=== PATIENT | female | born 1955 | race Caucasian/White ===

== ENCOUNTER 2017-07-23 18:09 | Emergency (ER) | payer MEDICARE, MEDICAID ==
[2017-07-23] MEDS ORDERED: Lactated Ringers 1,000 ML IV ONE (18:41)
[2017-07-23] MEDS ORDERED: Metoclopramide 10 MG/2 ML SDV IVPUSH ONE (18:42)
[2017-07-23] MEDS ORDERED: HYDROmorphone 2 MG/ML SDV IVPUSH ONE ×2 (18:42→21:30)
--- NOTE | 2017-07-23 18:48 | EDM.PDOC ---
ED HPI GENERAL MEDICAL PROBLEM - General Chief Complaint: Abdominal Pain Stated Complaint: STOMACH AND BACK PAIN Time Seen by Provider: 07/23/17 18:35 Source of Information: Reports: Patient, Old Records History Limitations: Reports: No Limitations - History of Present Illness INITIAL COMMENTS - FREE TEXT/NARRATIVE: 61 yo female had progressive R sided abdominal pain on Saturday that has been severe and constant since then. No change in bowel or bladder fxn. No fever. Nausea with "dry heaves". Has had both appendix and gallbladder removed. Has a pain pump for back pain. Was seen by Dr. Landis today who referred to the ER. Has a hx of diverticulitis and this feels similar. Onset: Gradual Onset Date: 07/21/17 Duration: Day(s):, Constant Location: Reports: Abdomen Quality: Reports: Stabbing Severity: Severe Improves with: Reports: None Worsens with: Reports: Breathing, Other (pressing on area) Context: Reports: Other (unknown) Associated Symptoms: Reports: Nausea/Vomiting. Denies: Cough, Diaphoresis, Fever/Chills, Loss of Appetite, Shortness of Breath Treatments HR SPECIALIST: Reports: Other (see below) (none) right abdomen pain Pain Score (Numeric/FACES): 10 - Related Data Allergies Allergy/AdvReac Type Severity Reaction Status Date / Time clarithromycin [From Biaxin] Allergy Rash Verified 07/23/17 18:29 Penicillins Allergy Anaphylactic Verified 07/23/17 18:29 Shock Home Meds: Home Meds ARIPiprazole [Abilify] 5 mg PO DAILY 08/17/13 [History] Esomeprazole [NexIUM] 40 mg PO DAILY 08/17/13 [History] Gabapentin [Neurontin] 300 mg PO 14,22 08/17/13 [History] Montelukast [Singulair] 10 mg PO DAILY 08/17/13 [History] Potassium Chloride 20 meq PO DAILY 08/17/13 [History] Prazosin [Minpress] 3 mg PO BEDTIME 08/17/13 [History] QUEtiapine [SEROquel] 50 mg PO BEDTIME 08/17/13 [History] Spironolactone [Aldactone] 150 mg PO DAILY 08/17/13 [History] buPROPion [Wellbutrin XL] 300 mg PO DAILY 08/17/13 [History] metFORMIN [metFORMIN XR] 1,000 mg PO BIDM 08/17/13 [History] Baclofen [Baclofen] 10 mg PO TID 07/15/16 [History] Estradiol [Estradiol] 0.5 mg PO DAILY 07/15/16 [History] Glimepiride 4 mg PO WITHBREAKFAST 07/15/16 [History] busPIRone HCl [Buspirone HCl] 15 mg PO BID 07/15/16 [History] rOPINIRole [Requip] 1 mg PO BID 07/15/16 [History] Aspirin 81 mg PO DAILY 07/23/17 [History] Benztropine [Cogentin] 0.5 mg PO BID 07/23/17 [History] Fluocinonide [Lidex 0.05% Oint] 1 applic TOP BID 07/23/17 [History] Gabapentin [Neurontin] 600 mg PO 08 07/23/17 [History] Triamcinolone Acetonide [Kenalog 0.1% Crm] 1 applic TOP DAILY PRN 07/23/17 [ History] atorvaSTATin [Lipitor] 10 mg PO DAILY 07/23/17 [History] oxyCODONE 5 mg PO Q4HR PRN 07/23/17 [History] Past Medical History - Past Health History Medical/Surgical History: Denies Medical/Surgical History HEENT History: Reports: Impaired Vision Cardiovascular History: Reports: Hypertension Respiratory History: Reports: Bronchitis, Recurrent Gastrointestinal History: Reports: GERD Neurological History: Reports: Vertigo, Other (See Below) Other Neuro History: restless legs Psychiatric History: Reports: Anxiety Endocrine/Metabolic History: Reports: Diabetes, Type II - Past Surgical History Musculoskeletal Surgical History: Reports: Knee Replacement, Shoulder Replacement, Other (See Below) Social & Family History - Family History Family Medical History: Noncontributory - Tobacco Use Smoking Status *Q: Current Every Day Smoker Years of Tobacco use: 10 Packs/Tins Daily: 0.3 Used Tobacco, but Quit: No - Caffeine Use Caffeine Use: Reports: Coffee - Alcohol Use Days Per Week of Alcohol Use: 0 - Recreational Drug Use Recreational Drug Use: No ED ROS GENERAL - Review of Systems Review Of Systems: See Below Constitutional: Reports: Decreased Appetite. Denies: Fever, Chills HEENT: Reports: No Symptoms Respiratory: Reports: No Symptoms Cardiovascular: Reports: No Symptoms Endocrine: Reports: No Symptoms GI/Abdominal: Reports: Abdominal Pain, Nausea. Denies: Black Stool, Bloody Stool, Constipation, Diarrhea, Distension, Hematemesis, Hematochezia, Stool Incontinence, Vomiting : Reports: No Symptoms Skin: Reports: No Symptoms Neurological: Reports: No Symptoms ED EXAM, GI/ABD - Physical Exam Exam: See Below Exam Limited By: No Limitations General Appearance: Alert, WD/WN, No Apparent Distress Eyes: Bilateral: Normal Appearance Ears: Normal External Exam, Normal Canal, Hearing Grossly Normal Nose: Normal Inspection, Normal Mucosa, No Blood Throat/Mouth: Normal Inspection, Normal Lips, Normal Oropharynx, Normal Voice, No Airway Compromise Head: Atraumatic, Normocephalic Neck: Normal Inspection, Supple Respiratory/Chest: No Respiratory Distress, Lungs Clear, Normal Breath Sounds, No Accessory Muscle Use Cardiovascular: Regular Rate, Rhythm, No Edema GI/Abdominal Exam: Soft, No Distention, Guarding, Tender (R mid abdomen, and epigastrium.), Abnormal Bowel Sounds (Increased). No: Non-Tender, Rebound Back Exam: Normal Inspection, CVA Tenderness (R) (mild). No: CVA Tenderness (L) Extremities: Normal Inspection, Non-Tender, No Pedal Edema Neurological: Alert, Oriented, CN II-XII Intact, Normal Cognition, No Motor/ Sensory Deficits Psychiatric: Normal Affect, Normal Mood Skin Exam: Warm, Dry, Intact, Normal Color, No Rash Lymphatic: No Adenopathy Course - Vital Signs Last Recorded V/S: Last Vital Signs Temp 36.6 C 07/23/17 18:15 Pulse 81 07/23/17 18:15 Resp 20 07/23/17 18:15 BP 152/97 H 07/23/17 18:15 Pulse Ox 100 07/23/17 18:15 - Orders/Labs/Meds Orders: Active Orders 24 hr Category Date Time Status Abdomen Pelvis w Cont [CT] Stat Exams 07/23/17 18:43 Taken Labs: Laboratory Tests 07/23/17 07/23/17 07/23/17 Range/Units 18:55 18:55 18:55 WBC 9.1 (4.5-12.0) X10-3/uL RBC 5.85 H (3.23-5.20) x10(6)uL Hgb 16.6 H (11.5-15.5) g/dL Hct 51.2 (30.0-51.3) % MCV 87.5 (80-96) fL MCH 28.3 (27.7-33.6) pg MCHC 32.3 (32.2-35.4) g/dL RDW 13.5 (11.5-15.5) % Plt Count 268 (125-369) X10(3)uL Sodium 134 L (135-145) mmol/L Potassium 3.7 (3.5-5.3) mmol/L Chloride 100 D (100-110) mmol/L Carbon Dioxide 23 (23-29) mmol/L BUN 14 (5-20) mg/dL Creatinine 0.8 (0.6-1.3) mg/dL Est Cr Clr Drug Dosing 73.63 mL/min Estimated GFR (MDRD) > 60 (>60) BUN/Creatinine Ratio 17.5 (9-20) Glucose 223 H (80-116) mg/dL Calcium 9.3 (8.6-10.2) mg/dL Total Bilirubin 1.0 (0.1-1.3) mg/dL AST 23 D (5-27) IU/L ALT 27 H (14-26) IU/L Alkaline Phosphatase 77 (56-112) IU/L Total Protein 8.3 H (6.0-8.0) g/dL Albumin 4.2 (3.5-5.2) g/dL Globulin 4.1 g/dL Albumin/Globulin Ratio 1.0 Amylase 83 (28-100) U/L Urine Color (YELLOW) Urine Appearance (CLEAR) Urine pH (5.0-6.5) Ur Specific [place] (1.010-1.025) Urine Protein (NEGATIVE) mg/dL Urine Glucose (UA) (NEGATIVE) mg/dL Urine Ketones (NEGATIVE) mg/dL Urine Occult Blood (NEGATIVE) Urine Nitrite (NEGATIVE) Urine Bilirubin (NEGATIVE) Urine Urobilinogen (NEGATIVE) mg/dL Ur Leukocyte Esterase (NEGATIVE) Urine RBC (0) Urine WBC (0) Ur Squamous Epith Cells (NS,R,O) Urine Bacteria (NS) 07/23/17 Range/Units 20:20 WBC (4.5-12.0) X10-3/uL RBC (3.23-5.20) x10(6)uL Hgb (11.5-15.5) g/dL Hct (30.0-51.3) % MCV (80-96) fL MCH (27.7-33.6) pg MCHC (32.2-35.4) g/dL RDW (11.5-15.5) % Plt Count (125-369) X10(3)uL Sodium (135-145) mmol/L Potassium (3.5-5.3) mmol/L Chloride (100-110) mmol/L Carbon Dioxide (23-29) mmol/L BUN (5-20) mg/dL Creatinine (0.6-1.3) mg/dL Est Cr Clr Drug Dosing mL/min Estimated GFR (MDRD) (>60) BUN/Creatinine Ratio (9-20) Glucose (80-116) mg/dL Calcium (8.6-10.2) mg/dL Total Bilirubin (0.1-1.3) mg/dL AST (5-27) IU/L ALT (14-26) IU/L Alkaline Phosphatase (56-112) IU/L Total Protein (6.0-8.0) g/dL Albumin (3.5-5.2) g/dL Globulin g/dL Albumin/Globulin Ratio Amylase (28-100) U/L Urine Color Yellow (YELLOW) Urine Appearance Clear (CLEAR) Urine pH 5.0 (5.0-6.5) Ur Specific [place] 1.015 (1.010-1.025) Urine Protein Negative (NEGATIVE) mg/dL Urine Glucose (UA) Normal (NEGATIVE) mg/dL Urine Ketones Negative (NEGATIVE) mg/dL Urine Occult Blood Negative (NEGATIVE) Urine Nitrite Negative (NEGATIVE) Urine Bilirubin Negative (NEGATIVE) Urine Urobilinogen Normal (NEGATIVE) mg/dL Ur Leukocyte Esterase Negative (NEGATIVE) Urine RBC 0-5 (0) Urine WBC 0-5 (0) Ur Squamous Epith Cells Moderate H (NS,R,O) Urine Bacteria Moderate H (NS) Meds: Medications Discontinued Medications Generic Name Dose Route Start Last Admin Trade Name Freq PRN Reason Stop Dose Admin Hydromorphone HCl 1 mg 07/23/17 18:42 07/23/17 19:09 Dilaudid IVPUSH 07/23/17 18:43 1 mg ONETIME ONE Administration Hydromorphone HCl 1 mg 07/23/17 21:30 07/23/17 21:34 Dilaudid IVPUSH 07/23/17 21:31 1 mg ONETIME ONE Administration Lactated Ringer's 1,000 mls @ 1,000 mls/hr 07/23/17 18:41 07/23/17 19:09 Ringers, Lactated IV 07/23/17 19:40 1,000 mls/hr BOLUS ONE Administration Iopamidol 150 ml 07/23/17 20:03 07/23/17 20:35 Isovue-370 (76%) IV 07/23/17 20:04 120 ml ONETIME ONE Administration Metoclopramide HCl 10 mg 07/23/17 18:42 07/23/17 19:09 Reglan IVPUSH 07/23/17 18:43 10 mg ONETIME ONE Administration Ondansetron HCl 4 mg 07/23/17 19:31 07/23/17 19:46 Zofran IVPUSH 07/23/17 19:32 4 mg ONETIME ONE Administration - Radiology Interpretation CT Results Date: 07/23/17 Departure - Departure Time of Disposition: 21:53 Disposition: Home, Self-Care 01 Condition: Good Clinical Impression: Abdominal pain Qualifiers: Abdominal location: generalized Qualified Code(s): R10.84 - Generalized abdominal pain Constipation Qualifiers: Constipation type: slow transit constipation Qualified Code(s): K59.01 - Slow transit constipation - Discharge Information Referrals: Castro Landis MD [Primary Care Provider] - Forms: ED Department Discharge - My Orders Last 24 Hours: My Active Orders 07/23/17 18:43 Abdomen Pelvis w Cont [CT] Stat - Assessment/Plan Last 24 Hours: My Active Orders 07/23/17 18:43 Abdomen Pelvis w Cont [CT] Stat
[2017-07-23] MEDS ORDERED: Ondansetron 4 MG/2 ML SDV IVPUSH ONE (19:31)
[2017-07-23] MEDS ORDERED: Iopamidol 755 MG/ML 150 ML Bottle IV ONE (20:03)
[2017-07-23] MEDS ORDERED: Ondansetron 4 MG Tab.DIS PO ONE (21:57)
[2017-07-23 22:13] VITALS: BP 153/80
== END 2017-07-23 22:05 | disposition home or self-care (01) ==
LOC: FB.ED 18:09
DX: K59.01 Slow transit constipation (principal); I10 Essential (primary) hypertension; K21.9 Gastro-esophageal reflux disease without esophagitis; E11.9 Type 2 diabetes mellitus without complications; F17.210 Nicotine dependence, cigarettes, uncomplicated; Z88.0 Allergy status to penicillin; Z88.8 Allergy status to other drugs, medicaments and biological substances; Z79.84 Long term (current) use of oral hypoglycemic drugs
CPT/HCPCS: 36415; 74177; 80053; 81001; 82150; 85027; 96365; 96375; 96376; 99284; J1170; J2405; J2765; J7120; Q9967; A9270-GY

== ENCOUNTER 2019-09-01 16:56 | Emergency (ER) | payer MEDICARE, MEDICAID ==
[2019-09-01] MEDS ORDERED: Acetaminophen/oxyCODONE 325-5 MG Tab PO ONE (16:57)
[2019-09-01] MEDS ORDERED: Ondansetron 4 MG Tab.DIS PO ONE (16:57)
[2019-09-01] MEDS ORDERED: Sodium Chloride 0.9% 10 ML Syringe FLUSH PRN (18:31)
[2019-09-01] MEDS ORDERED: Morphine 2 MG/ML Syringe IVPUSH ONE (18:34)
[2019-09-01] MEDS ORDERED: Ondansetron 4 MG/2 ML SDV IVPUSH ONE (18:34)
[2019-09-01] MEDS ORDERED: Alum Hydroxide/Mag Hydroxide 15 ML, Lidocaine 2% 15 ML PO ONE ×2 (18:34)
[2019-09-01] MEDS ORDERED: Sodium Chloride 0.9% 1,000 ML IV SCH (18:45)
[2019-09-01] MEDS ORDERED: Iopamidol 755 Mg/ML 100 ML Bottle IV ONE (19:00)
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
[2019-09-01 20:46] VITALS: BP 152/86; PULSE 70
== END 2019-09-01 20:42 | disposition home or self-care (01) ==
LOC: FB.ED 16:56
DX: K74.60 Unspecified cirrhosis of liver (principal); K76.6 Portal hypertension; I10 Essential (primary) hypertension; K21.9 Gastro-esophageal reflux disease without esophagitis; F41.9 Anxiety disorder, unspecified; F32.9 Major depressive disorder, single episode, unspecified; E11.9 Type 2 diabetes mellitus without complications; Z88.0 Allergy status to penicillin; Z88.1 Allergy status to other antibiotic agents; F17.210 Nicotine dependence, cigarettes, uncomplicated; E66.9 Obesity, unspecified; Z68.37 Body mass index [BMI] 37.0-37.9, adult; Z79.82 Long term (current) use of aspirin; Z79.84 Long term (current) use of oral hypoglycemic drugs; Z79.899 Other long term (current) drug therapy
CPT/HCPCS: 36415; 74177; 80053; 82150; 83690; 85025; 96361; 96374; 96375; 99284; A9270; J2270; J2405; J7030; Q9967

== ENCOUNTER 2019-09-03 09:53 | Inpatient (IN) | payer MEDICARE, MEDICAID ==
[2019-09-03] MEDS: Sodium Chloride 0.9% 10 ML Syringe FLUSH PRN ×2 (11:10→11:33)
[2019-09-03] MEDS: Lactated Ringers 1,000 ML IV SCH ×2 (11:12→19:01)
[2019-09-03] MEDS ORDERED: Pantoprazole 80 MG in Sodium Chloride 0.9% 100 ML IV SCH (11:15)
[2019-09-03] MEDS: Enoxaparin 30 MG/0.3 ML Syringe SUBCUT SCH (11:20)
[2019-09-03] MEDS: Ondansetron 4 MG/2 ML SDV IV PRN ×2 (11:28→23:24)
[2019-09-03] MEDS: HYDROmorphone 2 MG/ML SDV IVPUSH PRN ×6 (11:33→23:16)
[2019-09-03] MEDS: Pantoprazole 40 MG Vial IVPUSH SCH (11:34)
[2019-09-03] MEDS: Baclofen 10 MG Tab PO SCH (21:15)
[2019-09-03] MEDS: QUEtiapine 25 MG Tab PO SCH (21:15)
[2019-09-04] MEDS: HYDROmorphone 2 MG/ML SDV IVPUSH PRN ×6 (01:44→16:35)
[2019-09-04] MEDS: Lactated Ringers 1,000 ML IV SCH ×3 (02:59→19:26)
[2019-09-04] MEDS: Ondansetron 4 MG/2 ML SDV IV PRN (08:04)
--- NOTE | 2019-09-04 09:07 | PCM.PN ---
- General Info Date of Service: 09/04/19 Subjective Update: Patrica is a 63-year-old female admitted for acute pancreatitis. She still complains of pain in the right upper quadrant, abdominal distention, and some constipation. She denies any vomiting. Functional Status: Reports: Pain Controlled - Review of Systems General: Reports: No Symptoms HEENT: Reports: No Symptoms Pulmonary: Reports: No Symptoms Cardiovascular: Reports: No Symptoms Gastrointestinal: Reports: Abdominal Pain, Constipation Genitourinary: Reports: No Symptoms - Patient Data Vitals - Most Recent: Last Vital Signs Temp 97.7 F 09/04/19 07:57 Pulse 62 09/04/19 07:57 Resp 16 09/04/19 07:57 BP 130/74 09/04/19 07:57 Pulse Ox 96 09/04/19 07:57 Weight - Most Recent: 112.083 kg I&O - Last 24 Hours: Intake & Output 09/03/19 09/04/19 09/04/19 22:59 06:59 14:59 Intake Total 1914 1535 Output Total 350 750 350 Balance 1564 785 -350 Lab Results Last 24 Hours: Laboratory Results - last 24 hr 09/03/19 09/03/19 09/03/19 Range/Units 11:25 11:25 11:50 WBC 6.5 (4.5-12.0) X10-3/uL RBC 4.63 (3.23-5.20) x10(6)uL Hgb 14.9 (11.5-15.5) g/dL Hct 43.1 (30.0-51.3) % MCV 93.1 (80-96) fL MCH 32.1 (27.7-33.6) pg MCHC 34.5 (32.2-35.4) g/dL RDW 12.9 (11.5-15.5) % Plt Count 195 (125-369) X10(3)uL Sodium 140 (135-145) mmol/L Potassium 3.4 L (3.5-5.3) mmol/L Chloride 106 (100-110) mmol/L Carbon Dioxide 26 (21-32) mmol/L BUN 5 L (7-18) mg/dL Creatinine 0.7 (0.55-1.02) mg/dL Est Cr Clr Drug Dosing 82.07 mL/min Estimated GFR (MDRD) > 60 (>60) BUN/Creatinine Ratio 7.1 L (9-20) Glucose 104 (80-116) mg/dL POC Glucose 83 (80-116) mg/dL Calcium 8.6 (8.6-10.2) mg/dL Magnesium 1.7 L (1.8-2.5) mg/dL Total Bilirubin 0.4 (0.1-1.3) mg/dL AST 18 (5-25) IU/L ALT 30 D (12-36) U/L Alkaline Phosphatase 68 (56-112) IU/L Total Protein 6.6 (6.0-8.0) g/dL Albumin 3.2 (3.2-4.6) g/dL Globulin 3.4 g/dL Albumin/Globulin Ratio 0.9 09/03/19 09/03/19 09/04/19 Range/Units 17:22 19:51 05:39 WBC (4.5-12.0) X10-3/uL RBC (3.23-5.20) x10(6)uL Hgb (11.5-15.5) g/dL Hct (30.0-51.3) % MCV (80-96) fL MCH (27.7-33.6) pg MCHC (32.2-35.4) g/dL RDW (11.5-15.5) % Plt Count (125-369) X10(3)uL Sodium (135-145) mmol/L Potassium (3.5-5.3) mmol/L Chloride (100-110) mmol/L Carbon Dioxide (21-32) mmol/L BUN (7-18) mg/dL Creatinine (0.55-1.02) mg/dL Est Cr Clr Drug Dosing mL/min Estimated GFR (MDRD) (>60) BUN/Creatinine Ratio (9-20) Glucose (80-116) mg/dL POC Glucose 80 141 H 89 (80-116) mg/dL Calcium (8.6-10.2) mg/dL Magnesium (1.8-2.5) mg/dL Total Bilirubin (0.1-1.3) mg/dL AST (5-25) IU/L ALT (12-36) U/L Alkaline Phosphatase (56-112) IU/L Total Protein (6.0-8.0) g/dL Albumin (3.2-4.6) g/dL Globulin g/dL Albumin/Globulin Ratio Med Orders - Current: Current Medications Baclofen (Lioresal) 10 mg PO TID [facility] Last Admin: 09/03/19 21:15 Dose: 10 mg Enoxaparin Sodium (Lovenox) 30 mg SUBCUT Q24H [facility] Last Admin: 09/03/19 11:20 Dose: 30 mg Hydromorphone HCl (Dilaudid) 0.5 mg IVPUSH Q2H PRN PRN Reason: Pain (severe 7-10) Last Admin: 09/04/19 08:03 Dose: 0.5 mg Lactated Ringer's (Ringers, Lactated) 1,000 mls @ 125 mls/hr IV ASDIRECTED [facility] Last Admin: 09/04/19 02:59 Dose: 125 mls/hr Ondansetron HCl (Zofran) 4 mg IV Q4H PRN PRN Reason: Nausea/Vomiting Last Admin: 09/04/19 08:04 Dose: 4 mg Pantoprazole Sodium (Protonix Iv) 40 mg IVPUSH Q24H [facility] Last Admin: 09/03/19 11:34 Dose: 40 mg Quetiapine Fumarate (Seroquel) 25 mg PO BEDTIME [facility] Last Admin: 09/03/19 21:15 Dose: 25 mg Sodium Chloride (Saline Flush) 10 ml FLUSH ASDIRECTED PRN PRN Reason: IV Use Last Admin: 09/03/19 11:33 Dose: 10 ml Discontinued Medications Pantoprazole Sodium 80 mg/ (Sodium Chloride) 100 mls @ 10 mls/hr IV .Continuous [facility] - Exam General: Alert, Oriented HEENT: Pupils Equal Lungs: Clear to Auscultation Cardiovascular: Regular Rate GI/Abdominal Exam: Distended, Guarding, Tender. No: Hepatomegaly Extremities: Normal Inspection Neurological: No New Focal Deficit - Problem List & Annotations (1) Pancreatitis SNOMED Code(s): 61514724 Code(s): K85.90 - ACUTE PANCREATITIS WITHOUT NECROSIS OR INFECTION, UNSP Status: Acute Current Visit: Yes Qualifiers: Chronicity: acute Pancreatitis type: idiopathic Acute pancreatitis complication: no infection or necrosis Qualified Code(s): K85.00 - Idiopathic acute pancreatitis without necrosis or infection (2) Constipation SNOMED Code(s): 49871952 Code(s): K59.00 - CONSTIPATION, UNSPECIFIED Status: Acute Current Visit: No Qualifiers: Constipation type: slow transit constipation Qualified Code(s): K59.01 - Slow transit constipation (3) Jerking movements of extremities SNOMED Code(s): 539822376 Code(s): R25.2 - CRAMP AND SPASM Status: Acute Current Visit: No (4) Portal hypertension SNOMED Code(s): 68491616 Code(s): K76.6 - PORTAL HYPERTENSION Status: Acute Current Visit: No (5) Restless leg SNOMED Code(s): 16151634 Code(s): G25.81 - RESTLESS LEGS SYNDROME Status: Chronic Current Visit: No Annotation/Comment:: Possible RLS. She has been given benzodiazepines in the past. I suggested taking (2) Seroquel 25 mg tabs from home this early am, and call PCP office for appt for follow up. (6) TRIPP (generalized anxiety disorder) SNOMED Code(s): 45811768 Code(s): F41.1 - GENERALIZED ANXIETY DISORDER Status: Acute Current Visit : Yes (7) Chronic pain SNOMED Code(s): 63125871 Code(s): G89.29 - OTHER CHRONIC PAIN Status: Acute Current Visit: Yes Qualifiers: Chronic pain type: chronic pain syndrome Qualified Code(s): G89.4 - Chronic pain syndrome (8) Hepatitis C Status: Acute Current Visit: Yes Qualifiers: Viral hepatitis chronicity: chronic - Problem List Review Problem List Initiated/Reviewed/Updated: Yes - My Orders Last 24 Hours: My Active Orders 09/04/19 09:01 Abdomen 2V AP Flat Upright [CR] Urgent 09/04/19 09:02 traMADol [Ultram] 50 mg PO QID PRN 09/04/19 14:00 Gabapentin [Neurontin] 300 mg PO 09/04/19 21:00 Prazosin HCl [Prazosin] 2 mg PO BEDTIME Prazosin [Minpress] 1 mg PO BEDTIME QUEtiapine [SEROquel] 50 mg PO BEDTIME busPIRone [Buspar] 15 mg PO BID rOPINIRole [Requip] 1 mg PO BID 09/05/19 05:11 AMYLASE [CHEM] AM CBC WITH AUTO DIFF [HEME] AM LIPASE [CHEM] AM 09/05/19 08:00 Gabapentin [Neurontin] 600 mg PO 08 09/05/19 09:00 ARIPiprazole [Abilify] 5 mg PO DAILY Esomeprazole [NexIUM] 40 mg PO DAILY Spironolactone [Aldactone] 150 mg PO DAILY buPROPion [Wellbutrin XL] 300 mg PO DAILY - Plan Plan:: I will obtain an upright and flat x-ray of abdomen. Continued clear liquid diet , because how some of the home medications ,including PPI as tolerated. Repeat a lipase CBC and CMP in the morning.
[2019-09-04] MEDS: traMADol 50 MG Tab PO PRN ×3 (09:39→20:15)
[2019-09-04] MEDS: Baclofen 10 MG Tab PO SCH ×3 (09:39→20:20)
[2019-09-04] MEDS: busPIRone 15 MG Tab PO SCH ×2 (11:03→20:20)
[2019-09-04] MEDS: Gabapentin 600 MG Tab PO SCH (11:03)
[2019-09-04] MEDS: Spironolactone 50 MG Tab PO SCH (11:03)
[2019-09-04] MEDS: rOPINIRole 1 MG Tab PO SCH ×2 (11:03→20:16)
[2019-09-04] MEDS: ARIPiprazole 5 MG Tab PO SCH (11:03)
[2019-09-04] MEDS: buPROPion 150 MG Tab.ER PO SCH (11:04)
[2019-09-04] MEDS: Pantoprazole 40 MG Vial IVPUSH SCH (11:05)
[2019-09-04] MEDS: Enoxaparin 30 MG/0.3 ML Syringe SUBCUT SCH (11:05)
[2019-09-04] MEDS: Gabapentin 300 MG Cap PO SCH ×2 (14:11→21:04)
[2019-09-04] MEDS ORDERED: Polyethylene Glycol 3350 Powder 17 GM Packet PO ONE (19:26)
[2019-09-04] MEDS: QUEtiapine 25 MG Tab PO SCH (20:16)
[2019-09-04] MEDS ORDERED: Prazosin 1 MG Cap PO SCH ×2 (21:00)
[2019-09-05] MEDS: traMADol 50 MG Tab PO PRN (02:22)
[2019-09-05] MEDS: Lactated Ringers 1,000 ML IV SCH (03:13)
[2019-09-05] MEDS: HYDROmorphone 2 MG/ML SDV IVPUSH PRN (05:16)
[2019-09-05] MEDS: Gabapentin 600 MG Tab PO SCH (08:20)
[2019-09-05] MEDS: ARIPiprazole 5 MG Tab PO SCH (08:20)
[2019-09-05] MEDS: busPIRone 15 MG Tab PO SCH (08:21)
[2019-09-05] MEDS: Baclofen 10 MG Tab PO SCH (08:21)
[2019-09-05] MEDS: Spironolactone 50 MG Tab PO SCH (08:21)
[2019-09-05] MEDS: rOPINIRole 1 MG Tab PO SCH (08:21)
[2019-09-05] MEDS: buPROPion 150 MG Tab.ER PO SCH (08:21)
[2019-09-05 08:38] VITALS: BP 136/80; PULSE 60
--- NOTE | 2019-09-05 08:47 | PCM.DCSUM1 ---
Discharge Summary - Hospital Course Free Text/Narrative:: Patrica was admitted to acute idiopathic pancreatitis. CT revealed mild inflammation of the pancreas. This morning lipase and amylase returned to normal range. She feels ready to go home. HPI Initial Comments: Patrica was admitted for pancreatitis. I feel dose of blood pain improved. She still has some constipation. She has been drinking clear fluids and tolerating it Diagnosis: Stroke: No - Discharge Data Discharge Date: 09/05/19 Discharge Disposition: Home, Self-Care 01 Condition: Good - Referral to Home Health Primary Care Physician: Castro Landis MD - Discharge Diagnosis/Problem(s) (1) Pancreatitis SNOMED Code(s): 30648081 ICD Code: K85.90 - ACUTE PANCREATITIS WITHOUT NECROSIS OR INFECTION, UNSP Status: Acute Current Visit: Yes Qualifiers: Chronicity: acute Pancreatitis type: idiopathic Acute pancreatitis complication: no infection or necrosis Qualified Code(s): K85.00 - Idiopathic acute pancreatitis without necrosis or infection (2) Constipation SNOMED Code(s): 78124230 ICD Code: K59.00 - CONSTIPATION, UNSPECIFIED Status: Acute Current Visit : No Qualifiers: Constipation type: slow transit constipation Qualified Code(s): K59.01 - Slow transit constipation (3) Jerking movements of extremities SNOMED Code(s): 109646369 ICD Code: R25.2 - CRAMP AND SPASM Status: Acute Current Visit: No (4) Portal hypertension SNOMED Code(s): 73662908 ICD Code: K76.6 - PORTAL HYPERTENSION Status: Acute Current Visit: No (5) Restless leg SNOMED Code(s): 72830598 ICD Code: G25.81 - RESTLESS LEGS SYNDROME Status: Chronic Current Visit: No Problem Details: Possible RLS. She has been given benzodiazepines in the past. I suggested taking (2) Seroquel 25 mg tabs from home this early am, and call PCP office for appt for follow up. (6) TRIPP (generalized anxiety disorder) SNOMED Code(s): 42104829 ICD Code: F41.1 - GENERALIZED ANXIETY DISORDER Status: Acute Current Visit: Yes (7) Chronic pain SNOMED Code(s): 71025347 ICD Code: G89.29 - OTHER CHRONIC PAIN Status: Acute Current Visit: Yes Qualifiers: Chronic pain type: chronic pain syndrome Qualified Code(s): G89.4 - Chronic pain syndrome (8) Hepatitis C Status: Acute Current Visit: Yes Qualifiers: Viral hepatitis chronicity: chronic - Discharge Plan Home Medications: Home Meds ARIPiprazole [Abilify] 5 mg PO DAILY 08/17/13 [History] Esomeprazole [NexIUM] 40 mg PO DAILY 08/17/13 [History] Gabapentin [Neurontin] 300 mg PO 14,08/17/13 [History] Montelukast [Singulair] 10 mg PO DAILY 08/17/13 [History] Potassium Chloride 20 meq PO DAILY 08/17/13 [History] Prazosin [Minpress] 1 mg PO BEDTIME 08/17/13 [History] QUEtiapine [SEROquel] 25 mg PO BEDTIME 08/17/13 [History] Spironolactone [Aldactone] 150 mg PO DAILY 08/17/13 [History] buPROPion [buPROPion XL] 300 mg PO DAILY 08/17/13 [History] Baclofen 10 mg PO TID 07/15/16 [History] Estradiol 0.5 mg PO DAILY 07/15/16 [History] Glimepiride 4 mg PO WITHBREAKFAST 07/15/16 [History] busPIRone HCl [Buspirone HCl] 15 mg PO BID 07/15/16 [History] rOPINIRole [Requip] 1 mg PO BID 07/15/16 [History] Aspirin 81 mg PO DAILY 07/23/17 [History] Benztropine [Cogentin] 0.5 mg PO BID PRN 07/23/17 [History] Fluocinonide [Lidex 0.05% Oint] 1 applic TOP BID PRN 07/23/17 [History] Gabapentin [Neurontin] 600 mg PO 08 07/23/17 [History] Triamcinolone Acetonide [Kenalog 0.1% Crm] 1 applic TOP BID PRN 07/23/17 [ History] atorvaSTATin [Lipitor] 10 mg PO DAILY 07/23/17 [History] Acetaminophen/oxyCODONE [Percocet 325-5 MG] 1 each PO Q4H PRN 09/03/19 [History] Acetaminophen/oxyCODONE [Percocet 325-5 MG] 2 tab PO Q4H PRN 09/03/19 [History] Carboxymethylcellulose Sodium [Artificial Tears] 2 drop EYEBOTH Q4H PRN [History] Insulin Degludec [Tresiba Flextouch U-100] 44 units SUBCUT DAILY 09/03/19 [ History] Ondansetron HCl [Zofran] 4 mg PO Q4H PRN 09/03/19 [History] Prazosin HCl [Prazosin] 2 mg PO BEDTIME 09/03/19 [History] QUEtiapine [SEROquel] 50 mg PO BEDTIME 09/03/19 [History] metFORMIN HCl [Metformin HCl] 1,000 mg PO BIDMEALS 09/03/19 [History] traMADol HCl [Tramadol HCl] 50 mg PO QID PRN 09/03/19 [History] Referrals: Boy Wade MD [Physician] - 09/07/19 - Discharge Summary/Plan Comment DC Time >30 min.: Yes - General Info Date of Service: 09/05/19 Subjective Update: Doing much bettter Functional Status: Reports: Pain Controlled, Tolerating Diet - Review of Systems General: Reports: No Symptoms HEENT: Reports: No Symptoms Pulmonary: Reports: No Symptoms Cardiovascular: Reports: No Symptoms Gastrointestinal: Reports: Constipation Genitourinary: Reports: No Symptoms Musculoskeletal: Reports: Neck Pain, Back Pain Skin: Reports: No Symptoms Neurological: Reports: No Symptoms - Patient Data Vitals - Most Recent: Last Vital Signs Temp 97.8 F 09/05/19 08:00 Pulse 60 09/05/19 08:00 Resp 18 09/05/19 08:00 BP 136/80 09/05/19 08:00 Pulse Ox 99 09/05/19 08:00 Weight - Most Recent: 113.217 kg I&O - Last 24 hours: Intake & Output 09/04/19 09/05/19 09/05/19 22:59 06:59 14:59 Intake Total 1634 1000 Output Total 1500 1100 Balance 134 -100 Lab Results - Last 24 hrs: Laboratory Results - last 24 hr 09/04/19 09/04/19 09/05/19 Range/Units 17:21 20:24 06:30 WBC 5.5 (4.5-12.0) X10-3/uL RBC 4.42 (3.23-5.20) x10(6)uL Hgb 13.7 (11.5-15.5) g/dL Hct 41.8 (30.0-51.3) % MCV 94.6 (80-96) fL MCH 31.0 (27.7-33.6) pg MCHC 32.8 (32.2-35.4) g/dL RDW 13.1 (11.5-15.5) % Plt Count 177 (125-369) X10(3)uL MPV 9.4 (7.4-10.4) fL Neut % (Auto) 69.0 (46-82) % Lymph % (Auto) 21.4 (13-37) % Wilkes % (Auto) 6.5 (4-12) % Eos % (Auto) 3 (1.0-5.0) % Baso % (Auto) 1 (0-2) % Neut # (Auto) 3.8 (1.6-8.3) # Lymph # (Auto) 1.2 (0.6-5.0) # Wilkes # (Auto) 0.4 (0.0-1.3) # Eos # (Auto) 0.1 (0.0-0.8) # Baso # (Auto) 0.0 (0.0-0.2) # POC Glucose 141 H 202 H (80-116) mg/dL Amylase (25-115) U/L Lipase (73-393) U/L 09/05/19 09/05/19 09/05/19 Range/Units 06:30 06:30 06:36 WBC (4.5-12.0) X10-3/uL RBC (3.23-5.20) x10(6)uL Hgb (11.5-15.5) g/dL Hct (30.0-51.3) % MCV (80-96) fL MCH (27.7-33.6) pg MCHC (32.2-35.4) g/dL RDW (11.5-15.5) % Plt Count (125-369) X10(3)uL MPV (7.4-10.4) fL Neut % (Auto) (46-82) % Lymph % (Auto) (13-37) % Wilkes % (Auto) (4-12) % Eos % (Auto) (1.0-5.0) % Baso % (Auto) (0-2) % Neut # (Auto) (1.6-8.3) # Lymph # (Auto) (0.6-5.0) # Wilkes # (Auto) (0.0-1.3) # Eos # (Auto) (0.0-0.8) # Baso # (Auto) (0.0-0.2) # POC Glucose 164 H (80-116) mg/dL Amylase 39 (25-115) U/L Lipase 304 (73-393) U/L Med Orders - Current: Current Medications Aripiprazole (Abilify) 5 mg PO DAILY [facility] Last Admin: 09/05/19 08:20 Dose: 5 mg Baclofen (Lioresal) 10 mg PO TID [facility] Last Admin: 09/05/19 08:21 Dose: 10 mg Bupropion HCl (Wellbutrin Xl) 300 mg PO DAILY [facility] Last Admin: 09/05/19 08:21 Dose: 300 mg Buspirone HCl (Buspar) 15 mg PO BID [facility] Last Admin: 09/05/19 08:21 Dose: 15 mg Enoxaparin Sodium (Lovenox) 30 mg SUBCUT Q24H [facility] Last Admin: 09/04/19 11:05 Dose: 30 mg Gabapentin (Neurontin) 300 mg PO , [facility] Last Admin: 09/04/19 21:04 Dose: 300 mg Gabapentin (Neurontin) 600 mg PO 0800 [facility] Last Admin: 09/05/19 08:20 Dose: 600 mg Hydromorphone HCl (Dilaudid) 0.5 mg IVPUSH Q2H PRN PRN Reason: Pain (severe 7-10) Last Admin: 09/05/19 05:16 Dose: 0.5 mg Lactated Ringer's (Ringers, Lactated) 1,000 mls @ 125 mls/hr IV ASDIRECTED [facility] Last Admin: 09/05/19 03:13 Dose: 125 mls/hr Ondansetron HCl (Zofran) 4 mg IV Q4H PRN PRN Reason: Nausea/Vomiting Last Admin: 09/04/19 08:04 Dose: 4 mg Pantoprazole Sodium (Protonix Iv) 40 mg IVPUSH Q24H [facility] Last Admin: 09/04/19 11:05 Dose: 40 mg Prazosin HCl (Minpress) 3 mg PO BEDTIME [facility] Last Admin: 09/04/19 20:16 Dose: 3 mg Quetiapine Fumarate (Seroquel) 25 mg PO BEDTIME [facility] Last Admin: 09/04/19 20:16 Dose: 25 mg Quetiapine Fumarate (Seroquel) 50 mg PO BEDTIME [facility] Last Admin: 09/04/19 20:16 Dose: 50 mg Ropinirole HCl (Requip) 1 mg PO BID [facility] Last Admin: 09/05/19 08:21 Dose: 1 mg Sodium Chloride (Saline Flush) 10 ml FLUSH ASDIRECTED PRN PRN Reason: IV Use Last Admin: 09/03/19 11:33 Dose: 10 ml Spironolactone (Aldactone) 150 mg PO DAILY [facility] Last Admin: 09/05/19 08:21 Dose: 150 mg Tramadol HCl (Ultram) 50 mg PO QID PRN PRN Reason: Pain (severe 7-10) Last Admin: 09/05/19 02:22 Dose: 50 mg Discontinued Medications Pantoprazole Sodium 80 mg/ (Sodium Chloride) 100 mls @ 10 mls/hr IV .Continuous [facility] Polyethylene Glycol (Miralax) 17 gm PO ONETIME ONE Stop: 09/04/19 19:27 Last Admin: 09/04/19 20:14 Dose: 17 gm - Exam General: Reports: Alert, Oriented Neck: Reports: Supple Lungs: Reports: Clear to Auscultation Cardiovascular: Reports: Regular Rate GI/Abdominal Exam: Normal Bowel Sounds, Soft, Distended, Tender Skin: Reports: Warm Wound/Incisions: Reports: Healing Well Neurological: Reports: No New Focal Deficit Psy/Mental Status: Reports: Alert, Normal Affect
[2019-09-05] MEDS ORDERED: Non-Formulary Medication 1 Each (Esomeprazole [Nexium] 40 MG) PO SCH (09:00)
--- NOTE | 2019-09-09 10:04 | HP ---
ADMISSION DATE: 09/03/2019 REASON FOR VISIT: Complicated abdominal pain, clinical pancreatitis. HISTORY OF PRESENT ILLNESS: Patrica Ewing is a 63-year-old female from [place], [place], who was admitted at the request of Dr. Boy Wade to [facility]. Been plagued by several days of complicated epigastric abdominal pain, nausea, anorexia, reduced appetite, and a sense of reduced well being. Fever suspected, but not confirmed. Laboratory evidence revealed evidence of pancreatitis. CT performed at [facility] confirmed pancreatic head edema without malignancy or pseudocyst. Outpatient treatment of IV fluids and pain control unsuccessful. Admission to the hospital is indicated. MEDICATIONS: Present meds include: 1. Zofran 4 mg q.4 hours p.r.n. nausea. 2. Percocet 5/325, one q.6 hours p.r.n. for pain. 3. Tramadol 50 mg 1 p.o. q.i.d. p.r.n. for pain. 4. Intrathecal pump intervention. 5. Estrace 0.5 mg 1 p.o. daily, menopause. 6. Nexium 40 mg 1 p.o. daily, GERD. 7. Neurontin 300 mg 2 in the morning, 1 in the afternoon, and 1 at bedtime. 8. Lipitor 10 mg 1 p.o. daily, hyperlipidemia. 9. Baclofen 10 mg 1 p.o. t.i.d., muscle spasm. 10.Lidex 0.005% ointment p.r.n., rash. 11.Amaryl 4 mg 1 p.o. daily, NIDDM. 12.Metformin 1000 mg 1 p.o. b.i.d., NIDDM. 13.Singulair 10 mg 1 p.o. daily, allergies. 14.Requip 1 mg 1 p.o. b.i.d., restless legs. 15.Aldactone 100 mg 1/2 tab daily, blood pressure. 16.Tresiba 44 units subcu daily, NIDDM. 17.Minipress 2 mg 1 p.o. daily, hypertension, at bedtime; 3 mg in the morning. 18.BuSpar 15 mg 1 p.o. b.i.d., mood stabilizer. 19.Cogentin 0.5 mg b.i.d., side effect management. 20.Baby aspirin. 21.Artificial Tears. 22.Abilify 5 mg daily, mood stabilizer. 23.Seroquel 25 mg 1 p.o. at bedtime, mood stabilizer. 24.Wellbutrin XL 300 mg 1 p.o. daily, mood stabilizer. ALLERGIES: Penicillin, Biaxin, and seasonal allergies. PAST MEDICAL HISTORY: Significant for list of upper and lower endoscopy for varicosities, right ankle fusion, left knee arthroscopy, pain pump insertion, right total knee arthroplasty, left total ankle arthroplasty, appendectomy, lumbar back surgery, breast biopsies x2, cholecystectomy hysterectomy, previous spine surgery, remote tonsillectomy, left wrist fracture, and history of hepatitis C. SOCIAL HISTORY: She lives in [place], retired. . No children. Current smoker of 1/4 pack per day, 45 years' duration. No chewing tobacco. No vaping. No alcohol. FAMILY HISTORY: Negative for early heart disease, diabetes mellitus, or inheritable cancers. REVIEW OF SYSTEMS: CONSTITUTIONAL: Feeling poorly with the abdominal pain. EYES: Sees well. EARS: Hears well. OROPHARYNX: Poor dentition, though intact. CHEST: No cough, wheeze, or congestion. CARDIOVASCULAR: Denies chest pain, palpitations, or syncope. GASTROINTESTINAL: Please see HPI. GENITOURINARY: Voiding comfortably, less urine output with illness. SKIN: No lesions, eruptions, or moles. ENDOCRINE: No excessive thirst or urination. ALLERGIES: Noted. PSYCHIATRIC: Mood stable on meds. PHYSICAL EXAMINATION: VITAL SIGNS: Stable and documented. GENERAL: Middle- aged older female, appropriate, conversant, gives good history. HEENT: Funduscopic benign. Bright TMs. Clear nasal discharge. Mouth and oropharynx clear. NECK: Benign. Thyroid small. CHEST: Clear in all lung velazquez. No adventitious sounds. HEART: No ectopy or murmur. BREASTS: Symmetric, parous, without masses. ABDOMEN: Surgical scar is well healed. Diffusely tender in the epigastric area. Decreased bowel sounds. GENITOURINARY: Deferred. RECTAL: Deferred. EXTREMITIES: Well perfused. NEUROMUSCULAR: Intact. LABORATORY STUDIES: Performed and identified. ASSESSMENT: Acute pancreatitis, 63-year-old female. PLAN: Bowel rest, analgesics, IV fluids, and hydration; viewing of pancreas if indicated; cooperative care and well being. /[id number] YOLANDE/ALBA
== END 2019-09-05 09:40 | disposition home or self-care (01) | DRG 439 ==
LOC: FB.MS 10:06
PROVIDERS: ADMIT Family Medicine; ATTEND Family Medicine
DX: K85.00 Idiopathic acute pancreatitis without necrosis or infection (principal); K76.6 Portal hypertension; G25.81 Restless legs syndrome; F41.1 Generalized anxiety disorder; G89.4 Chronic pain syndrome; K73.8 Other chronic hepatitis, not elsewhere classified; K59.01 Slow transit constipation; Z79.899 Other long term (current) drug therapy
CPT/HCPCS: 36415; 74019; 80053; 82150; 82962; 83690; 83735; 85025; 85027; 93005; 94760; A9270-GY; C9113; J1170; J1650; J2405; J7120

== ENCOUNTER 2020-09-10 14:43 | Emergency (ER) | payer MEDICARE, MEDICAID ==
[2020-09-10] MEDS ORDERED: Acetaminophen/HYDROcodone 325-5 MG Tab PO ONE (14:44)
[2020-09-10] MEDS ORDERED: Ondansetron 4 MG Tab.DIS PO ONE (14:44)
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
[2020-09-10] MEDS ORDERED: Sodium Chloride 0.9% 10 ML Syringe FLUSH PRN (15:21)
[2020-09-10] MEDS ORDERED: Ondansetron 4 MG/2 ML SDV IVPUSH ONE (15:23)
[2020-09-10] MEDS ORDERED: HYDROmorphone 2 MG/ML SDV IVPUSH ONE (15:23)
[2020-09-10] MEDS ORDERED: Sodium Chloride 0.9% 1,000 ML IV ONE (15:23)
[2020-09-10] MEDS ORDERED: Sodium Chloride 0.9% 1,000 ML IV SCH (15:30)
[2020-09-10] MEDS ORDERED: Ketorolac 30 MG/ML SDV IVPUSH ONE (19:22)
[2020-09-10] MEDS ORDERED: cefTRIAXone 1 GM Vial IVPUSH ONE (19:46)
[2020-09-10 21:04] VITALS: BP 124/73; PULSE 70
== END 2020-09-10 20:35 | disposition home or self-care (01) ==
LOC: FB.ED 14:43
DX: N10 Acute pyelonephritis (principal); E78.00 Pure hypercholesterolemia, unspecified; I10 Essential (primary) hypertension; K21.9 Gastro-esophageal reflux disease without esophagitis; F41.9 Anxiety disorder, unspecified; F32.9 Major depressive disorder, single episode, unspecified; E11.9 Type 2 diabetes mellitus without complications; F17.200 Nicotine dependence, unspecified, uncomplicated; E66.9 Obesity, unspecified; Z68.37 Body mass index [BMI] 37.0-37.9, adult; Z88.1 Allergy status to other antibiotic agents; Z88.0 Allergy status to penicillin; Z79.899 Other long term (current) drug therapy; Z79.82 Long term (current) use of aspirin; Z79.4 Long term (current) use of insulin
CPT/HCPCS: 36415; 74176; 80053; 81001; 83690; 83735; 85025; 86140; 87086; 93005; 96374; 96375; 99284; A9270; J0696; J1170; J1885; J2405; J7030

== ENCOUNTER 2021-03-20 21:15 | Observation (INO) | payer MEDICARE, MEDICAID ==
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
[2021-03-20] MEDS ORDERED: Sodium Chloride 0.9% 1,000 ML IV ONE (22:13)
[2021-03-20] MEDS ORDERED: Ondansetron 4 MG/2 ML SDV IVPUSH ONE (22:14)
[2021-03-20] MEDS ORDERED: HYDROmorphone 2 MG/ML SDV IVPUSH ONE (22:14)
[2021-03-20] MEDS ORDERED: Iopamidol 755 MG/ML 150 ML Bottle IV ONE (23:51)
[2021-03-21] MEDS ORDERED: Iopamidol 755 MG/ML 150 ML Bottle IV ONE (00:17)
[2021-03-21] MEDS: Sodium Chloride 0.9% 1,000 ML IV SCH ×4 (00:30→23:59)
[2021-03-21] MEDS ORDERED: Ondansetron 4 MG/2 ML SDV IV PRN (01:49)
[2021-03-21] MEDS ORDERED: HYDROmorphone 2 MG/ML SDV IVPUSH ONE (02:04)
[2021-03-21] MEDS: HYDROmorphone 2 MG/ML SDV IVPUSH PRN ×6 (05:41→20:12)
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
[2021-03-21] MEDS ORDERED: Pantoprazole 40 MG Vial IV SCH (10:00)
[2021-03-21] MEDS: Pantoprazole 40 MG Vial IVPUSH SCH (11:12)
[2021-03-21] MEDS: Enoxaparin 40 MG/0.4 ML Syringe SUBCUT SCH (11:22)
[2021-03-21] MEDS: ARIPIPRAZOLE 5 MG PO SCH (11:23)
[2021-03-21] MEDS: BUPROPION HCL 300 MG PO SCH (11:24)
[2021-03-21] MEDS: BUSPIRONE 15 MG PO SCH ×2 (11:24→20:23)
[2021-03-21] MEDS: Potassium Chloride 20 MEQ Tab.ER *PTOM PO SCH (11:25)
[2021-03-21] MEDS: BACLOFEN 10 MG PO SCH ×3 (11:25→20:21)
[2021-03-21] MEDS: atorvaSTATin 10 MG Tab *PTOM PO SCH (11:26)
[2021-03-21] MEDS: Gabapentin 300 MG Cap *PTOM PO SCH ×3 (11:26→20:21)
[2021-03-21] MEDS: Montelukast 10 MG Tab *PTOM PO SCH (11:27)
[2021-03-21] MEDS: rOPINIRole 1 MG Tab *PTOM PO SCH ×2 (11:27→20:20)
[2021-03-21] MEDS ORDERED: Ketorolac 30 MG/ML SDV IVPUSH PRN (17:33)
[2021-03-21] MEDS: Sodium Chloride 0.9% 10 ML Syringe FLUSH PRN (17:48)
[2021-03-21] MEDS ORDERED: PRAZOSIN HCL 2 MG PO SCH (21:00)
[2021-03-21] MEDS ORDERED: PRAZOSIN 1 MG PO SCH (21:00)
[2021-03-22] MEDS ORDERED: Acetaminophen/HYDROcodone 325-10 MG Tab PO PRN (08:13)
--- NOTE | 2021-03-22 08:13 | PCM.PN ---
- General Info Date of Service: 03/22/21 Admission Dx/Problem (Free Text): Patient states she is pain-free today in her abdomen. She is passing gas but has not had a BM. She denies nausea, vomiting, fevers, chills. She's not using any pain medicine since last night. - Patient Data Vitals - Most Recent: Last Vital Signs Temp 97.6 F 03/22/21 04:00 Pulse 76 03/22/21 04:00 Resp 18 03/22/21 04:00 BP 140/74 03/22/21 04:00 Pulse Ox 96 03/22/21 04:00 Weight - Most Recent: 253 lb 8 oz I&O - Last 24 Hours: Intake & Output 03/21/21 03/22/21 03/22/21 22:59 06:59 14:59 Intake Total 3888 859 Output Total 850 Balance 3888 9 Lab Results Last 24 Hours: Laboratory Results - last 24 hr 03/21/21 03/21/21 03/22/21 Range/Units 11:52 17:09 01:05 WBC (3.0-10.3) x10-3/uL RBC (3.60-5.20) x10(6)uL Hgb (11.4-15.5) g/dL Hct (34.2-48.2) % MCV (76.7-100.5) fL MCH (23.9-33.9) pg MCHC (31.9-34.8) g/dL RDW (12.3-16.5) % Plt Count (151-488) x10(3)uL MPV (7.1-12.4) fL Neut % (Auto) (30.8-76.2) % Lymph % (Auto) (18.4-52.1) % [place] % (Auto) (4.4-15.7) % Eos % (Auto) (0.6-8.1) % Baso % (Auto) (0.2-1.5) % Neut # (Auto) (1.5-6.3) x10-3/uL Lymph # (Auto) (1.0-4.4) x10-3/uL [place] # (Auto) (0.3-1.0) x10-3/uL Eos # (Auto) (0.0-0.8) x10-3/uL Baso # (Auto) (0.0-0.1) x10-3/uL Sodium (135-145) mmol/L Potassium (3.5-5.3) mmol/L Chloride (100-110) mmol/L Carbon Dioxide (21-32) mmol/L BUN (7-18) mg/dL Creatinine (0.55-1.02) mg/dL Est Cr Clr Drug Dosing mL/min Estimated GFR (MDRD) (>60) BUN/Creatinine Ratio (9-20) Glucose (80-116) mg/dL POC Glucose 164 H 152 H 139 H (80-116) mg/dL Calcium (8.6-10.2) mg/dL Total Bilirubin (0.1-1.3) mg/dL AST (5-25) IU/L ALT (12-36) U/L Alkaline Phosphatase (56-112) IU/L Total Protein (6.0-8.0) g/dL Albumin (3.2-4.6) g/dL Globulin g/dL Albumin/Globulin Ratio Lipase (73-393) U/L 03/22/21 03/22/21 03/22/21 Range/Units 05:37 06:43 06:43 WBC 5.7 (3.0-10.3) x10-3/uL RBC 4.81 (3.60-5.20) x10(6)uL Hgb 14.5 (11.4-15.5) g/dL Hct 43.6 (34.2-48.2) % MCV 90.6 (76.7-100.5) fL MCH 30.2 (23.9-33.9) pg MCHC 33.3 (31.9-34.8) g/dL RDW 14.6 (12.3-16.5) % Plt Count 165 (151-488) x10(3)uL MPV 9.7 (7.1-12.4) fL Neut % (Auto) 66.0 (30.8-76.2) % Lymph % (Auto) 23.2 (18.4-52.1) % [place] % (Auto) 7.7 (4.4-15.7) % Eos % (Auto) 2.4 (0.6-8.1) % Baso % (Auto) 0.7 (0.2-1.5) % Neut # (Auto) 3.8 (1.5-6.3) x10-3/uL Lymph # (Auto) 1.3 (1.0-4.4) x10-3/uL [place] # (Auto) 0.4 (0.3-1.0) x10-3/uL Eos # (Auto) 0.1 (0.0-0.8) x10-3/uL Baso # (Auto) 0.0 (0.0-0.1) x10-3/uL Sodium 140 (135-145) mmol/L Potassium 4.0 (3.5-5.3) mmol/L Chloride 106 (100-110) mmol/L Carbon Dioxide 24 (21-32) mmol/L BUN 9 (7-18) mg/dL Creatinine 0.9 (0.55-1.02) mg/dL Est Cr Clr Drug Dosing 62.22 mL/min Estimated GFR (MDRD) > 60 (>60) BUN/Creatinine Ratio 10.0 (9-20) Glucose 137 H (80-116) mg/dL POC Glucose 144 H (80-116) mg/dL Calcium 7.5 L (8.6-10.2) mg/dL Total Bilirubin 0.6 (0.1-1.3) mg/dL AST 23 D (5-25) IU/L ALT 28 (12-36) U/L Alkaline Phosphatase 114 H (56-112) IU/L Total Protein 6.3 (6.0-8.0) g/dL Albumin 2.8 L (3.2-4.6) g/dL Globulin 3.5 g/dL Albumin/Globulin Ratio 0.8 Lipase (73-393) U/L 03/22/21 Range/Units 06:43 WBC (3.0-10.3) x10-3/uL RBC (3.60-5.20) x10(6)uL Hgb (11.4-15.5) g/dL Hct (34.2-48.2) % MCV (76.7-100.5) fL MCH (23.9-33.9) pg MCHC (31.9-34.8) g/dL RDW (12.3-16.5) % Plt Count (151-488) x10(3)uL MPV (7.1-12.4) fL Neut % (Auto) (30.8-76.2) % Lymph % (Auto) (18.4-52.1) % [place] % (Auto) (4.4-15.7) % Eos % (Auto) (0.6-8.1) % Baso % (Auto) (0.2-1.5) % Neut # (Auto) (1.5-6.3) x10-3/uL Lymph # (Auto) (1.0-4.4) x10-3/uL [place] # (Auto) (0.3-1.0) x10-3/uL Eos # (Auto) (0.0-0.8) x10-3/uL Baso # (Auto) (0.0-0.1) x10-3/uL Sodium (135-145) mmol/L Potassium (3.5-5.3) mmol/L Chloride (100-110) mmol/L Carbon Dioxide (21-32) mmol/L BUN (7-18) mg/dL Creatinine (0.55-1.02) mg/dL Est Cr Clr Drug Dosing mL/min Estimated GFR (MDRD) (>60) BUN/Creatinine Ratio (9-20) Glucose (80-116) mg/dL POC Glucose (80-116) mg/dL Calcium (8.6-10.2) mg/dL Total Bilirubin (0.1-1.3) mg/dL AST (5-25) IU/L ALT (12-36) U/L Alkaline Phosphatase (56-112) IU/L Total Protein (6.0-8.0) g/dL Albumin (3.2-4.6) g/dL Globulin g/dL Albumin/Globulin Ratio Lipase 172 (73-393) U/L Med Orders - Current: Current Medications Aripiprazole (Aripiprazole 5 Mg Tab *Ptom) 5 mg PO DAILY [facility] Last Admin: 03/21/21 11:23 Dose: 5 mg Documented by: Atorvastatin Calcium (Atorvastatin 10 Mg Tab *Ptom) 10 mg PO DAILY [facility] Last Admin: 03/21/21 11:26 Dose: 10 mg Documented by: Baclofen (Baclofen 10 Mg Tab *Ptom) 10 mg PO TID [facility] Last Admin: 03/21/21 20:21 Dose: 10 mg Documented by: Buspirone HCl (Buspirone 15 Mg Tab *Ptom) 15 mg PO BID [facility] Last Admin: 03/21/21 20:23 Dose: 15 mg Documented by: Enoxaparin Sodium (Enoxaparin 40 Mg/0.4 Ml Syringe) 40 mg SUBCUT Q24H [facility] Last Admin: 03/21/21 11:22 Dose: 40 mg Documented by: Gabapentin (Gabapentin 300 Mg Cap *Ptom) 600 mg PO TID [facility] Last Admin: 03/21/21 20:21 Dose: 600 mg Documented by: Montelukast Sodium (Montelukast 10 Mg Tab *Ptom) 10 mg PO DAILY [facility] Last Admin: 03/21/21 11:27 Dose: 10 mg Documented by: (Bupropion Hcl [ Wellbutrin Xl] 300 Mg Tab.Er.24h) *Ptom 300 mg PO DAILY [facility] Last Admin: 03/21/21 11:24 Dose: 300 mg Documented by: (Doxepin [Sinequan] (100 Mg Cap) *Ptom) 100 mg PO BEDTIME [facility] Last Admin: 03/21/21 20:22 Dose: 100 mg Documented by: (Spironolactone [ Aldactone] 100 Mg Tablet) *Ptom 150 mg PO DAILY [facility] Last Admin: 03/21/21 11:28 Dose: 150 mg Documented by: (Prazosin Hcl [ Prazosin] 2 Mg Capsule) *Ptom 2 mg PO BEDTIME [facility] Last Admin: 03/21/21 20:20 Dose: 2 mg Documented by: Ondansetron HCl (Ondansetron 4 Mg/2 Ml Sdv) 4 mg IV Q6H PRN PRN Reason: Nausea/Vomiting Pantoprazole Sodium (Pantoprazole 40 Mg Vial) 40 mg IVPUSH Q24H [facility] Last Admin: 03/21/21 11:12 Dose: 40 mg Documented by: Potassium Chloride (Potassium Chloride 20 Meq Tab.Er *Ptom) 20 meq PO DAILY [facility] Last Admin: 03/21/21 11:25 Dose: 20 meq Documented by: Prazosin HCl (Prazosin 1 Mg Cap *Ptom) 1 mg PO BEDTIME [facility] Last Admin: 03/21/21 20:22 Dose: 1 mg Documented by: Ropinirole HCl (Ropinirole 1 Mg Tab *Ptom) 1 mg PO BID [facility] Last Admin: 03/21/21 20:20 Dose: 1 mg Documented by: Sodium Chloride (Sodium Chloride 0.9% 10 Ml Syringe) 10 ml FLUSH ASDIRECTED PRN PRN Reason: Keep Vein Open Last Admin: 03/21/21 17:48 Dose: 10 ml Documented by: Discontinued Medications Hydromorphone HCl (Hydromorphone 2 Mg/Ml Sdv) 1 mg IVPUSH ONETIME ONE Stop: 03/20/21 22:15 Last Admin: 03/20/21 23:18 Dose: 1 mg Documented by: Hydromorphone HCl (Hydromorphone 2 Mg/Ml Sdv) 0.5 mg IVPUSH Q2H PRN PRN Reason: Pain (severe 7-10) Last Admin: 03/21/21 20:12 Dose: 0.5 mg Documented by: Hydromorphone HCl (Hydromorphone 2 Mg/Ml Sdv) 1 mg IVPUSH ONETIME ONE Stop: 03/21/21 02:05 Last Admin: 03/21/21 02:19 Dose: 1 mg Documented by: Sodium Chloride (Normal Saline) 1,000 mls @ 999 mls/hr IV .BOLUS ONE Stop: 03/20/21 23:13 Last Admin: 03/20/21 23:15 Dose: 999 mls/hr Documented by: Sodium Chloride (Normal Saline) 1,000 mls @ 125 mls/hr IV ASDIRECTED [facility] Last Admin: 03/21/21 23:59 Dose: 125 mls/hr Documented by: Iopamidol (Iopamidol 755 Mg/Ml 150 Ml Bottle) 150 ml IV ONETIME ONE Stop: 03/20/21 23:52 Last Admin: 03/21/21 00:18 Dose: 128 ml Documented by: Iopamidol (Iopamidol 755 Mg/Ml 150 Ml Bottle) 150 ml IV ONETIME ONE Stop: 03/21/21 00:18 Ketorolac Tromethamine (Ketorolac 30 Mg/Ml Sdv) 30 mg IVPUSH Q6H PRN PRN Reason: Pain Stop: 03/26/21 17:34 Ondansetron HCl (Ondansetron 4 Mg/2 Ml Sdv) 4 mg IVPUSH ONETIME ONE Stop: 03/20/21 22:15 Last Admin: 03/20/21 23:17 Dose: 4 mg Documented by: Pantoprazole Sodium (Pantoprazole 40 Mg Vial) 40 mg IV Q24H [facility] - Exam General: Alert, Oriented, Cooperative GI/Abdominal Exam: Normal Bowel Sounds, Non-Tender, No Organomegaly, No Distention - Patient Data Lab Results Last 24 hrs: Laboratory Results - last 24 hr 03/21/21 03/21/21 03/22/21 Range/Units 11:52 17:09 01:05 WBC (3.0-10.3) x10-3/uL RBC (3.60-5.20) x10(6)uL Hgb (11.4-15.5) g/dL Hct (34.2-48.2) % MCV (76.7-100.5) fL MCH (23.9-33.9) pg MCHC (31.9-34.8) g/dL RDW (12.3-16.5) % Plt Count (151-488) x10(3)uL MPV (7.1-12.4) fL Neut % (Auto) (30.8-76.2) % Lymph % (Auto) (18.4-52.1) % [place] % (Auto) (4.4-15.7) % Eos % (Auto) (0.6-8.1) % Baso % (Auto) (0.2-1.5) % Neut # (Auto) (1.5-6.3) x10-3/uL Lymph # (Auto) (1.0-4.4) x10-3/uL [place] # (Auto) (0.3-1.0) x10-3/uL Eos # (Auto) (0.0-0.8) x10-3/uL Baso # (Auto) (0.0-0.1) x10-3/uL Sodium (135-145) mmol/L Potassium (3.5-5.3) mmol/L Chloride (100-110) mmol/L Carbon Dioxide (21-32) mmol/L BUN (7-18) mg/dL Creatinine (0.55-1.02) mg/dL Est Cr Clr Drug Dosing mL/min Estimated GFR (MDRD) (>60) BUN/Creatinine Ratio (9-20) Glucose (80-116) mg/dL POC Glucose 164 H 152 H 139 H (80-116) mg/dL Calcium (8.6-10.2) mg/dL Total Bilirubin (0.1-1.3) mg/dL AST (5-25) IU/L ALT (12-36) U/L Alkaline Phosphatase (56-112) IU/L Total Protein (6.0-8.0) g/dL Albumin (3.2-4.6) g/dL Globulin g/dL Albumin/Globulin Ratio Lipase (73-393) U/L 03/22/21 03/22/21 03/22/21 Range/Units 05:37 06:43 06:43 WBC 5.7 (3.0-10.3) x10-3/uL RBC 4.81 (3.60-5.20) x10(6)uL Hgb 14.5 (11.4-15.5) g/dL Hct 43.6 (34.2-48.2) % MCV 90.6 (76.7-100.5) fL MCH 30.2 (23.9-33.9) pg MCHC 33.3 (31.9-34.8) g/dL RDW 14.6 (12.3-16.5) % Plt Count 165 (151-488) x10(3)uL MPV 9.7 (7.1-12.4) fL Neut % (Auto) 66.0 (30.8-76.2) % Lymph % (Auto) 23.2 (18.4-52.1) % [place] % (Auto) 7.7 (4.4-15.7) % Eos % (Auto) 2.4 (0.6-8.1) % Baso % (Auto) 0.7 (0.2-1.5) % Neut # (Auto) 3.8 (1.5-6.3) x10-3/uL Lymph # (Auto) 1.3 (1.0-4.4) x10-3/uL [place] # (Auto) 0.4 (0.3-1.0) x10-3/uL Eos # (Auto) 0.1 (0.0-0.8) x10-3/uL Baso # (Auto) 0.0 (0.0-0.1) x10-3/uL Sodium 140 (135-145) mmol/L Potassium 4.0 (3.5-5.3) mmol/L Chloride 106 (100-110) mmol/L Carbon Dioxide 24 (21-32) mmol/L BUN 9 (7-18) mg/dL Creatinine 0.9 (0.55-1.02) mg/dL Est Cr Clr Drug Dosing 62.22 mL/min Estimated GFR (MDRD) > 60 (>60) BUN/Creatinine Ratio 10.0 (9-20) Glucose 137 H (80-116) mg/dL POC Glucose 144 H (80-116) mg/dL Calcium 7.5 L (8.6-10.2) mg/dL Total Bilirubin 0.6 (0.1-1.3) mg/dL AST 23 D (5-25) IU/L ALT 28 (12-36) U/L Alkaline Phosphatase 114 H (56-112) IU/L Total Protein 6.3 (6.0-8.0) g/dL Albumin 2.8 L (3.2-4.6) g/dL Globulin 3.5 g/dL Albumin/Globulin Ratio 0.8 Lipase (73-393) U/L // Range/Units 06:43 WBC (3.0-10.3) x10-3/uL RBC (3.60-5.20) x10(6)uL Hgb (11.4-15.5) g/dL Hct (34.2-48.2) % MCV (76.7-100.5) fL MCH (23.9-33.9) pg MCHC (31.9-34.8) g/dL RDW (12.3-16.5) % Plt Count (151-488) x10(3)uL MPV (7.1-12.4) fL Neut % (Auto) (30.8-76.2) % Lymph % (Auto) (18.4-52.1) % [place] % (Auto) (4.4-15.7) % Eos % (Auto) (0.6-8.1) % Baso % (Auto) (0.2-1.5) % Neut # (Auto) (1.5-6.3) x10-3/uL Lymph # (Auto) (1.0-4.4) x10-3/uL [place] # (Auto) (0.3-1.0) x10-3/uL Eos # (Auto) (0.0-0.8) x10-3/uL Baso # (Auto) (0.0-0.1) x10-3/uL Sodium (135-145) mmol/L Potassium (3.5-5.3) mmol/L Chloride (100-110) mmol/L Carbon Dioxide (21-32) mmol/L BUN (7-18) mg/dL Creatinine (0.55-1.02) mg/dL Est Cr Clr Drug Dosing mL/min Estimated GFR (MDRD) (>60) BUN/Creatinine Ratio (9-20) Glucose (80-116) mg/dL POC Glucose (80-116) mg/dL Calcium (8.6-10.2) mg/dL Total Bilirubin (0.1-1.3) mg/dL AST (5-25) IU/L ALT (12-36) U/L Alkaline Phosphatase (56-112) IU/L Total Protein (6.0-8.0) g/dL Albumin (3.2-4.6) g/dL Globulin g/dL Albumin/Globulin Ratio Lipase 172 (73-393) U/L Result Diagrams: 03/22/21 06:43 03/22/21 06:43 Sepsis Event Note - Evaluation Sepsis Screening Result: No Definite Risk - Focused Exam Vital Signs: Vital Signs Temp Pulse Resp BP BP Pulse Ox 03/22/21 04:00 97.6 F 76 18 140/74 96 03/22/21 00:00 72 20 92 L 03/21/21 20:22 131/68 - Problem List & Annotations (1) Palliative care status SNOMED Code(s): 742280535 Code(s): Z51.5 - ENCOUNTER FOR PALLIATIVE CARE Status: Acute Current Visit: Yes (2) Smoker SNOMED Code(s): 18073570 Code(s): F17.200 - NICOTINE DEPENDENCE, UNSPECIFIED, UNCOMPLICATED Status: Acute Current Visit: Yes (3) Acute pancreatitis SNOMED Code(s): 199111323 Code(s): K85.90 - ACUTE PANCREATITIS WITHOUT NECROSIS OR INFECTION, UNSP Status: Acute Current Visit: Yes Qualifiers: Pancreatitis type: unspecified pancreatitis type Acute pancreatitis complication: no infection or necrosis Qualified Code(s): K85.90 - Acute pancreatitis without necrosis or infection, unspecified (4) Dehydration SNOMED Code(s): 11048157 Code(s): E86.0 - DEHYDRATION Status: Acute Current Visit: Yes (5) Diabetes mellitus type 2, uncontrolled SNOMED Code(s): 008880800, 604523598 Code(s): E11.65 - TYPE 2 DIABETES MELLITUS WITH HYPERGLYCEMIA Status: Acute Current Visit: Yes Qualifiers: Glycemic state: with hyperglycemia Qualified Code(s): E11.65 - Type 2 diabetes mellitus with hyperglycemia - Problem List Review Problem List Initiated/Reviewed/Updated: Yes - My Orders Last 24 Hours: My Active Orders 03/21/21 10:00 Pantoprazole [ProTONIX IV] 40 mg IVPUSH Q24H 03/21/21 10:30 Enoxaparin [Lovenox] 40 mg SUBCUT Q24H 03/21/21 11:00 ARIPiprazole [Abilify] 5 mg PO DAILY Baclofen [Lioresal] 10 mg PO TID Gabapentin [Neurontin] 600 mg PO TID Montelukast [Singulair] 10 mg PO DAILY Potassium Chloride [Klor-Con M20] 20 meq PO DAILY Spironolactone [Aldactone] 150 mg PO DAILY atorvaSTATin [Lipitor] 10 mg PO DAILY buPROPion HCL [Wellbutrin Xl] 300 mg PO DAILY busPIRone [Buspar] 15 mg PO BID rOPINIRole [Requip] 1 mg PO BID 03/21/21 21:00 Doxepin [SINEquan] 100 mg PO BEDTIME Prazosin HCl [Prazosin] 2 mg PO BEDTIME Prazosin [Minpress] 1 mg PO BEDTIME 03/22/21 08:10 Convert IV to Saline Lock [OM.PC] Routine 03/22/21 Lunch Consistent Carbohydrate Diet [DIET] - Plan Plan:: 1. DC IV fluids and saline lock IV 2. DC Dilaudid and Toradol. 3. Hydrocortisone 5 x 3 25 one every 4 hours when necessary for pain 4. Advance diet. Diabetic diet. Start off with full liquids for breakfast. If she tolerates it give her regular diabetic meal for lunch. She does not tolerate either these meals they are to call he. She tolerates both meals consider discharge this afternoon. 5. Vitals every shift.
[2021-03-22] MEDS: Gabapentin 300 MG Cap *PTOM PO SCH ×2 (08:23→13:12)
[2021-03-22] MEDS: rOPINIRole 1 MG Tab *PTOM PO SCH (08:23)
[2021-03-22] MEDS: atorvaSTATin 10 MG Tab *PTOM PO SCH (08:23)
[2021-03-22] MEDS: Montelukast 10 MG Tab *PTOM PO SCH (08:23)
[2021-03-22] MEDS: BUPROPION HCL 300 MG PO SCH (08:24)
[2021-03-22] MEDS: Potassium Chloride 20 MEQ Tab.ER *PTOM PO SCH (08:24)
[2021-03-22] MEDS: BACLOFEN 10 MG PO SCH ×2 (08:24→13:11)
[2021-03-22] MEDS: ARIPIPRAZOLE 5 MG PO SCH (08:25)
[2021-03-22] MEDS: BUSPIRONE 15 MG PO SCH (08:25)
[2021-03-22] MEDS: Enoxaparin 40 MG/0.4 ML Syringe SUBCUT SCH (09:30)
[2021-03-22] MEDS: Sodium Chloride 0.9% 10 ML Syringe FLUSH PRN (09:30)
[2021-03-22] MEDS: Pantoprazole 40 MG Vial IVPUSH SCH (09:30)
[2021-03-22 13:14] VITALS: BP 153/73; PULSE 79
--- NOTE | 2021-03-22 14:30 | PCM.SN.2 ---
- Free Text/Narrative Note: The patient tolerated full liquids for breakfast and a regular meal for lunch without any pain. We waited 2 hours and she has a normal lipase. We'll discharge her home. Patient states she does not need any pain medication.
--- NOTE | 2021-03-22 14:32 | PCM.DCSUM1 ---
Discharge Summary - Hospital Course HPI Initial Comments: Hospital course-patient was admitted foot on nothing by mouth and a lot of her medication. The next morning patient still had some pain but wants something longer pain so I try Toradol with Dilaudid if needed. By that night she was not using medication. She is passing flatus and has not had any nausea vomiting. On the day of discharge she had no symptoms so I stopped IV fluids and rest her diet. Her lipase is back to normal. She had full liquids in the morning and a regular lunch. She had no pain nausea or vomiting. Waited 2 hours discharge her home. She does not want any pain medication. Brief History: This is a 65-year-old female patient is over week history of epigastric pain. She was seen 4 days prior to and she was told she probably has a little pancreatitis was offered hospitalization and she refused. Over the weekend she started have nausea and vomiting and the pain got worse. It radiated to her left flank. She says she has no fevers or chills. Bowel most are normal without hematochezia, melena diarrhea constipation per she's had pancreatitis in the past. She denies hyperlipidemia, alcohol use. She says she feels a little short of breath when she takes a deep inspiration. She says she is bloated. She has no chest pain. Diagnosis: Stroke: No - Discharge Data Discharge Date: 03/22/21 Discharge Disposition: Home, Self-Care 01 Condition: Good - Referral to Home Health Primary Care Physician: Castro Landis MD - Discharge Diagnosis/Problem(s) (1) Palliative care status SNOMED Code(s): 307741227 ICD Code: Z51.5 - ENCOUNTER FOR PALLIATIVE CARE Status: Acute Current Visit: Yes (2) Smoker SNOMED Code(s): 45024454 ICD Code: F17.200 - NICOTINE DEPENDENCE, UNSPECIFIED, UNCOMPLICATED Status: Acute Current Visit: Yes (3) Acute pancreatitis SNOMED Code(s): 933716093 ICD Code: K85.90 - ACUTE PANCREATITIS WITHOUT NECROSIS OR INFECTION, UNSP Status: Acute Current Visit: Yes Qualifiers: Pancreatitis type: unspecified pancreatitis type Acute pancreatitis complication: no infection or necrosis Qualified Code(s): K85.90 - Acute pancreatitis without necrosis or infection, unspecified (4) Dehydration SNOMED Code(s): 26434718 ICD Code: E86.0 - DEHYDRATION Status: Acute Current Visit: Yes (5) Diabetes mellitus type 2, uncontrolled SNOMED Code(s): 308145494, 742079664 ICD Code: E11.65 - TYPE 2 DIABETES MELLITUS WITH HYPERGLYCEMIA Status: Acute Current Visit: Yes Qualifiers: Glycemic state: with hyperglycemia Qualified Code(s): E11.65 - Type 2 diabetes mellitus with hyperglycemia - Patient Instructions Diet: Regular Diet as Tolerated Activity: As Tolerated Driving: May Drive Today Showering/Bathing: May Shower Notify Provider of: Fever, Increased Pain, Nausea and/or Vomiting Other/Special Instructions: 1. Recheck with Dr. Arana or myself in one week. - Discharge Plan Home Medications: Home Meds ARIPiprazole [Abilify] 5 mg PO DAILY 08/17/13 [History] Esomeprazole [NexIUM] 40 mg PO DAILY 08/17/13 [History] Montelukast [Singulair] 10 mg PO DAILY 08/17/13 [History] Potassium Chloride 20 meq PO DAILY 08/17/13 [History] Prazosin [Minpress] 1 mg PO BEDTIME 08/17/13 [History] Spironolactone [Aldactone] 150 mg PO DAILY 08/17/13 [History] Baclofen 10 mg PO TID 07/15/16 [History] busPIRone HCl [Buspirone HCl] 15 mg PO BID 07/15/16 [History] rOPINIRole [Requip] 1 mg PO BID 07/15/16 [History] Gabapentin [Neurontin] 600 mg PO TID 07/23/17 [History] atorvaSTATin [Lipitor] 10 mg PO DAILY 07/23/17 [History] Insulin Degludec [Tresiba Flextouch U-100] 60 units SUBCUT DAILY 09/03/19 [History] Prazosin HCl [Prazosin] 2 mg PO BEDTIME 09/03/19 [History] Doxepin [SINEquan] 100 mg PO BEDTIME 03/21/21 [History] Insulin Aspart [NovoLOG] 16 - 24 unit SUBCUT TIDMEALS 03/21/21 [History] Sucralfate 1 gm PO TIDAC 03/21/21 [History] buPROPion HCL [Wellbutrin Xl] 300 mg PO DAILY 03/21/21 [History] Forms: ED Department Discharge Referrals: Castro Landis MD [Primary Care Provider] - - Discharge Summary/Plan Comment DC Time >30 min.: No - Patient Data Vitals - Most Recent: Last Vital Signs Temp 98.2 F 03/22/21 13:12 Pulse 79 03/22/21 13:12 Resp 18 03/22/21 13:12 BP 153/73 H 03/22/21 13:12 Pulse Ox 95 03/22/21 13:12 Weight - Most Recent: 253 lb 8 oz I&O - Last 24 hours: Intake & Output 03/21/21 03/22/21 03/22/21 22:59 06:59 14:59 Intake Total 3888 859 283 Output Total 850 Balance 3888 9 283 Lab Results - Last 24 hrs: Laboratory Results - last 24 hr 03/21/21 03/22/21 03/22/21 Range/Units 17:09 01:05 05:37 WBC (3.0-10.3) x10-3/uL RBC (3.60-5.20) x10(6)uL Hgb (11.4-15.5) g/dL Hct (34.2-48.2) % MCV (76.7-100.5) fL MCH (23.9-33.9) pg MCHC (31.9-34.8) g/dL RDW (12.3-16.5) % Plt Count (151-488) x10(3)uL MPV (7.1-12.4) fL Neut % (Auto) (30.8-76.2) % Lymph % (Auto) (18.4-52.1) % [place] % (Auto) (4.4-15.7) % Eos % (Auto) (0.6-8.1) % Baso % (Auto) (0.2-1.5) % Neut # (Auto) (1.5-6.3) x10-3/uL Lymph # (Auto) (1.0-4.4) x10-3/uL [place] # (Auto) (0.3-1.0) x10-3/uL Eos # (Auto) (0.0-0.8) x10-3/uL Baso # (Auto) (0.0-0.1) x10-3/uL Sodium (135-145) mmol/L Potassium (3.5-5.3) mmol/L Chloride (100-110) mmol/L Carbon Dioxide (21-32) mmol/L BUN (7-18) mg/dL Creatinine (0.55-1.02) mg/dL Est Cr Clr Drug Dosing mL/min Estimated GFR (MDRD) (>60) BUN/Creatinine Ratio (9-20) Glucose (80-116) mg/dL POC Glucose 152 H 139 H 144 H (80-116) mg/dL Calcium (8.6-10.2) mg/dL Total Bilirubin (0.1-1.3) mg/dL AST (5-25) IU/L ALT (12-36) U/L Alkaline Phosphatase (56-112) IU/L Total Protein (6.0-8.0) g/dL Albumin (3.2-4.6) g/dL Globulin g/dL Albumin/Globulin Ratio Lipase (73-393) U/L 03/22/21 03/22/21 03/22/21 Range/Units 06:43 06:43 06:43 WBC 5.7 (3.0-10.3) x10-3/uL RBC 4.81 (3.60-5.20) x10(6)uL Hgb 14.5 (11.4-15.5) g/dL Hct 43.6 (34.2-48.2) % MCV 90.6 (76.7-100.5) fL MCH 30.2 (23.9-33.9) pg MCHC 33.3 (31.9-34.8) g/dL RDW 14.6 (12.3-16.5) % Plt Count 165 (151-488) x10(3)uL MPV 9.7 (7.1-12.4) fL Neut % (Auto) 66.0 (30.8-76.2) % Lymph % (Auto) 23.2 (18.4-52.1) % [place] % (Auto) 7.7 (4.4-15.7) % Eos % (Auto) 2.4 (0.6-8.1) % Baso % (Auto) 0.7 (0.2-1.5) % Neut # (Auto) 3.8 (1.5-6.3) x10-3/uL Lymph # (Auto) 1.3 (1.0-4.4) x10-3/uL [place] # (Auto) 0.4 (0.3-1.0) x10-3/uL Eos # (Auto) 0.1 (0.0-0.8) x10-3/uL Baso # (Auto) 0.0 (0.0-0.1) x10-3/uL Sodium 140 (135-145) mmol/L Potassium 4.0 (3.5-5.3) mmol/L Chloride 106 (100-110) mmol/L Carbon Dioxide 24 (21-32) mmol/L BUN 9 (7-18) mg/dL Creatinine 0.9 (0.55-1.02) mg/dL Est Cr Clr Drug Dosing 62.22 mL/min Estimated GFR (MDRD) > 60 (>60) BUN/Creatinine Ratio 10.0 (9-20) Glucose 137 H (80-116) mg/dL POC Glucose (80-116) mg/dL Calcium 7.5 L (8.6-10.2) mg/dL Total Bilirubin 0.6 (0.1-1.3) mg/dL AST 23 D (5-25) IU/L ALT 28 (12-36) U/L Alkaline Phosphatase 114 H (56-112) IU/L Total Protein 6.3 (6.0-8.0) g/dL Albumin 2.8 L (3.2-4.6) g/dL Globulin 3.5 g/dL Albumin/Globulin Ratio 0.8 Lipase 172 (73-393) U/L 03/22/21 Range/Units 11:14 WBC (3.0-10.3) x10-3/uL RBC (3.60-5.20) x10(6)uL Hgb (11.4-15.5) g/dL Hct (34.2-48.2) % MCV (76.7-100.5) fL MCH (23.9-33.9) pg MCHC (31.9-34.8) g/dL RDW (12.3-16.5) % Plt Count (151-488) x10(3)uL MPV (7.1-12.4) fL Neut % (Auto) (30.8-76.2) % Lymph % (Auto) (18.4-52.1) % [place] % (Auto) (4.4-15.7) % Eos % (Auto) (0.6-8.1) % Baso % (Auto) (0.2-1.5) % Neut # (Auto) (1.5-6.3) x10-3/uL Lymph # (Auto) (1.0-4.4) x10-3/uL [place] # (Auto) (0.3-1.0) x10-3/uL Eos # (Auto) (0.0-0.8) x10-3/uL Baso # (Auto) (0.0-0.1) x10-3/uL Sodium (135-145) mmol/L Potassium (3.5-5.3) mmol/L Chloride (100-110) mmol/L Carbon Dioxide (21-32) mmol/L BUN (7-18) mg/dL Creatinine (0.55-1.02) mg/dL Est Cr Clr Drug Dosing mL/min Estimated GFR (MDRD) (>60) BUN/Creatinine Ratio (9-20) Glucose (80-116) mg/dL POC Glucose 272 H D (80-116) mg/dL Calcium (8.6-10.2) mg/dL Total Bilirubin (0.1-1.3) mg/dL AST (5-25) IU/L ALT (12-36) U/L Alkaline Phosphatase (56-112) IU/L Total Protein (6.0-8.0) g/dL Albumin (3.2-4.6) g/dL Globulin g/dL Albumin/Globulin Ratio Lipase (73-393) U/L Med Orders - Current: Current Medications Hydrocodone Bitart/Acetaminophen (Acetaminophen/Hydrocodone 325-10 Mg Tab) 1 tab PO Q4H PRN PRN Reason: Pain Aripiprazole (Aripiprazole 5 Mg Tab *Ptom) 5 mg PO DAILY [facility] Last Admin: 03/22/21 08:25 Dose: 5 mg Documented by: Atorvastatin Calcium (Atorvastatin 10 Mg Tab *Ptom) 10 mg PO DAILY [facility] Last Admin: 03/22/21 08:23 Dose: 10 mg Documented by: Baclofen (Baclofen 10 Mg Tab *Ptom) 10 mg PO TID [facility] Last Admin: 03/22/21 13:11 Dose: 10 mg Documented by: Buspirone HCl (Buspirone 15 Mg Tab *Ptom) 15 mg PO BID [facility] Last Admin: 03/22/21 08:25 Dose: 15 mg Documented by: Enoxaparin Sodium (Enoxaparin 40 Mg/0.4 Ml Syringe) 40 mg SUBCUT Q24H [facility] Last Admin: 03/22/21 09:30 Dose: 40 mg Documented by: Gabapentin (Gabapentin 300 Mg Cap *Ptom) 600 mg PO TID [facility] Last Admin: 03/22/21 13:12 Dose: 600 mg Documented by: Montelukast Sodium (Montelukast 10 Mg Tab *Ptom) 10 mg PO DAILY [facility] Last Admin: 03/22/21 08:23 Dose: 10 mg Documented by: (Bupropion Hcl [ Wellbutrin Xl] 300 Mg Tab.Er.24h) *Ptom 300 mg PO DAILY [facility] Last Admin: 03/22/21 08:24 Dose: 300 mg Documented by: (Doxepin [Sinequan] (100 Mg Cap) *Ptom) 100 mg PO BEDTIME [facility] Last Admin: 03/21/21 20:22 Dose: 100 mg Documented by: (Spironolactone [ Aldactone] 100 Mg Tablet) *Ptom 150 mg PO DAILY [facility] Last Admin: 03/22/21 08:22 Dose: 150 mg Documented by: (Prazosin Hcl [ Prazosin] 2 Mg Capsule) *Ptom 2 mg PO BEDTIME [facility] Last Admin: 03/21/21 20:20 Dose: 2 mg Documented by: Ondansetron HCl (Ondansetron 4 Mg/2 Ml Sdv) 4 mg IV Q6H PRN PRN Reason: Nausea/Vomiting Pantoprazole Sodium (Pantoprazole 40 Mg Vial) 40 mg IVPUSH Q24H [facility] Last Admin: 03/22/21 09:30 Dose: 40 mg Documented by: Potassium Chloride (Potassium Chloride 20 Meq Tab.Er *Ptom) 20 meq PO DAILY [facility] Last Admin: 03/22/21 08:24 Dose: 20 meq Documented by: Prazosin HCl (Prazosin 1 Mg Cap *Ptom) 1 mg PO BEDTIME [facility] Last Admin: 03/21/21 20:22 Dose: 1 mg Documented by: Ropinirole HCl (Ropinirole 1 Mg Tab *Ptom) 1 mg PO BID [facility] Last Admin: 03/22/21 08:23 Dose: 1 mg Documented by: Sodium Chloride (Sodium Chloride 0.9% 10 Ml Syringe) 10 ml FLUSH ASDIRECTED PRN PRN Reason: Keep Vein Open Last Admin: 03/22/21 09:30 Dose: 10 ml Documented by: Discontinued Medications Hydromorphone HCl (Hydromorphone 2 Mg/Ml Sdv) 1 mg IVPUSH ONETIME ONE Stop: 03/20/21 22:15 Last Admin: 03/20/21 23:18 Dose: 1 mg Documented by: Hydromorphone HCl (Hydromorphone 2 Mg/Ml Sdv) 0.5 mg IVPUSH Q2H PRN PRN Reason: Pain (severe 7-10) Last Admin: 03/21/21 20:12 Dose: 0.5 mg Documented by: Hydromorphone HCl (Hydromorphone 2 Mg/Ml Sdv) 1 mg IVPUSH ONETIME ONE Stop: 03/21/21 02:05 Last Admin: 03/21/21 02:19 Dose: 1 mg Documented by: Sodium Chloride (Normal Saline) 1,000 mls @ 999 mls/hr IV .BOLUS ONE Stop: 03/20/21 23:13 Last Admin: 03/20/21 23:15 Dose: 999 mls/hr Documented by: Sodium Chloride (Normal Saline) 1,000 mls @ 125 mls/hr IV ASDIRECTED [facility] Last Admin: 03/21/21 23:59 Dose: 125 mls/hr Documented by: Iopamidol (Iopamidol 755 Mg/Ml 150 Ml Bottle) 150 ml IV ONETIME ONE Stop: 03/20/21 23:52 Last Admin: 03/21/21 00:18 Dose: 128 ml Documented by: Iopamidol (Iopamidol 755 Mg/Ml 150 Ml Bottle) 150 ml IV ONETIME ONE Stop: 03/21/21 00:18 Last Admin: 03/21/21 00:20 Dose: Not Given Documented by: Ketorolac Tromethamine (Ketorolac 30 Mg/Ml Sdv) 30 mg IVPUSH Q6H PRN PRN Reason: Pain Stop: 03/26/21 17:34 Ondansetron HCl (Ondansetron 4 Mg/2 Ml Sdv) 4 mg IVPUSH ONETIME ONE Stop: 03/20/21 22:15 Last Admin: 03/20/21 23:17 Dose: 4 mg Documented by: Pantoprazole Sodium (Pantoprazole 40 Mg Vial) 40 mg IV Q24H [facility]
== END 2021-03-22 14:45 | disposition home or self-care (01) ==
LOC: FB.ED 21:15 → FB.MS 03-21 01:37
PROVIDERS: ADMIT Emergency Medicine; ATTEND Family Medicine
DX: Z51.5 Encounter for palliative care (principal); K85.90 Acute pancreatitis without necrosis or infection, unspecified; E86.0 Dehydration; E11.65 Type 2 diabetes mellitus with hyperglycemia; E78.00 Pure hypercholesterolemia, unspecified; I10 Essential (primary) hypertension; F17.210 Nicotine dependence, cigarettes, uncomplicated; E66.9 Obesity, unspecified; Z68.39 Body mass index [BMI] 39.0-39.9, adult; Z20.822 Contact with and (suspected) exposure to COVID-19; Z88.0 Allergy status to penicillin; Z88.1 Allergy status to other antibiotic agents; Z79.899 Other long term (current) drug therapy; Z79.82 Long term (current) use of aspirin; Z79.84 Long term (current) use of oral hypoglycemic drugs; F34.0 Cyclothymic disorder; F43.10 Post-traumatic stress disorder, unspecified
CPT/HCPCS: 36415; 74177; 80048; 80053; 82947; 83690; 83735; 84484; 85025; 86140; 93005; 93010; 96372; 96374; 96375; 96376; 99217; 99219; 99285; 99285-25; 99443; A9270-GY; C9113; G0378; J1170; J1650; J2405; J7030; Q9967; U0002

== ENCOUNTER 2021-07-18 12:17 | Inpatient (IN) | payer MEDICARE, MEDICAID ==
[2021-07-18] MEDS: Sodium Chloride 0.9% 1,000 ML IV SCH ×2 (14:20→23:20)
[2021-07-18] MEDS: Ondansetron 4 MG/2 ML SDV IV PRN ×3 (14:23→23:19)
[2021-07-18] MEDS: Morphine 2 MG/ML SYRINGE IVPUSH PRN ×5 (14:25→23:18)
[2021-07-18] MEDS ORDERED: MORPHINE SCH (17:15)
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
[2021-07-18] MEDS ORDERED: Non-Formulary Medication 1 Each (Prazosin Hcl [Prazosin] 2 MG Capsule) PO SCH (21:00)
[2021-07-18] MEDS: busPIRone 15 MG Tab PO SCH (21:16)
[2021-07-18] MEDS: Prazosin 1 MG Cap PO SCH (21:16)
[2021-07-18] MEDS: rOPINIRole 1 MG Tab PO SCH (21:19)
[2021-07-18] MEDS: Doxepin 25 MG Cap PO SCH (21:19)
[2021-07-18] MEDS: Gabapentin 600 MG Tab PO SCH (21:19)
[2021-07-18] MEDS: Famotidine 20 MG Tab PO SCH (21:19)
[2021-07-18] MEDS: Baclofen 10 MG Tab PO SCH (21:19)
[2021-07-19] MEDS: Morphine 2 MG/ML SYRINGE IVPUSH PRN ×3 (02:05→07:27)
[2021-07-19] MEDS: Ondansetron 4 MG/2 ML SDV IV PRN ×4 (04:31→23:26)
[2021-07-19] MEDS: Sodium Chloride 0.9% 1,000 ML IV SCH (06:51)
[2021-07-19] MEDS ORDERED: Pantoprazole 40 MG Tab.CR PO SCH (07:30)
[2021-07-19] MEDS ORDERED: Non-Formulary Medication 1 Each (Esomeprazole [Nexium] 40 MG Cap) PO SCH (09:00)
--- NOTE | 2021-07-19 09:00 | PCM.PN ---
- General Info Date of Service: 07/19/21 Subjective Update: Patrica still complains of generalized abdominal pain. - Review of Systems HEENT: Reports: No Symptoms Pulmonary: Reports: No Symptoms Cardiovascular: Reports: No Symptoms Gastrointestinal: Reports: Abdominal Pain, Nausea Genitourinary: Reports: No Symptoms Musculoskeletal: Reports: No Symptoms - Patient Data Vitals - Most Recent: Last Vital Signs Temp 98.1 F 07/19/21 07:56 Pulse 68 07/19/21 07:56 Resp 18 07/19/21 07:56 BP 152/73 H 07/19/21 07:56 Pulse Ox 92 L 07/19/21 07:56 Weight - Most Recent: 113.217 kg Lab Results Last 24 Hours: Laboratory Results - last 24 hr 07/18/21 07/18/21 07/19/21 Range/Units 13:28 14:16 07:04 WBC 5.9 (3.0-10.3) x10-3/uL RBC 4.86 (3.60-5.20) x10(6)uL Hgb 15.2 (11.4-15.5) g/dL Hct 45.0 (34.2-48.2) % MCV 92.6 (76.7-100.5) fL MCH 31.2 (23.9-33.9) pg MCHC 33.7 (31.9-34.8) g/dL RDW 14.4 (12.3-16.5) % Plt Count 176 (151-488) x10(3)uL MPV 8.9 (7.1-12.4) fL Neut % (Auto) 63.8 (30.8-76.2) % Lymph % (Auto) 25.2 (18.4-52.1) % [place] % (Auto) 8.0 (4.4-15.7) % Eos % (Auto) 2.3 (0.6-8.1) % Baso % (Auto) 0.7 (0.2-1.5) % Neut # (Auto) 3.8 (1.5-6.3) x10-3/uL Lymph # (Auto) 1.5 (1.0-4.4) x10-3/uL [place] # (Auto) 0.5 (0.3-1.0) x10-3/uL Eos # (Auto) 0.1 (0.0-0.8) x10-3/uL Baso # (Auto) 0.0 (0.0-0.1) x10-3/uL Sodium (135-145) mmol/L Potassium (3.5-5.3) mmol/L Chloride (100-110) mmol/L Carbon Dioxide (21-32) mmol/L BUN (7-18) mg/dL Creatinine (0.55-1.02) mg/dL Est Cr Clr Drug Dosing mL/min Estimated GFR (MDRD) (>60) BUN/Creatinine Ratio (9-20) Glucose (80-116) mg/dL POC Glucose 287 H (80-116) mg/dL Calcium (8.6-10.2) mg/dL Total Bilirubin (0.1-1.3) mg/dL AST (5-25) IU/L ALT (12-36) U/L Alkaline Phosphatase (56-112) IU/L Total Protein (6.0-8.0) g/dL Albumin (3.2-4.6) g/dL Globulin g/dL Albumin/Globulin Ratio Lipase (73-393) U/L SARS-CoV-2 RNA (SAVITA) Negative (NEGATIVE) 07/19/21 07/19/21 Range/Units 07:04 07:04 WBC (3.0-10.3) x10-3/uL RBC (3.60-5.20) x10(6)uL Hgb (11.4-15.5) g/dL Hct (34.2-48.2) % MCV (76.7-100.5) fL MCH (23.9-33.9) pg MCHC (31.9-34.8) g/dL RDW (12.3-16.5) % Plt Count (151-488) x10(3)uL MPV (7.1-12.4) fL Neut % (Auto) (30.8-76.2) % Lymph % (Auto) (18.4-52.1) % [place] % (Auto) (4.4-15.7) % Eos % (Auto) (0.6-8.1) % Baso % (Auto) (0.2-1.5) % Neut # (Auto) (1.5-6.3) x10-3/uL Lymph # (Auto) (1.0-4.4) x10-3/uL [place] # (Auto) (0.3-1.0) x10-3/uL Eos # (Auto) (0.0-0.8) x10-3/uL Baso # (Auto) (0.0-0.1) x10-3/uL Sodium 141 (135-145) mmol/L Potassium 3.9 (3.5-5.3) mmol/L Chloride 106 (100-110) mmol/L Carbon Dioxide 26 (21-32) mmol/L BUN 9 (7-18) mg/dL Creatinine 0.9 (0.55-1.02) mg/dL Est Cr Clr Drug Dosing 114.35 mL/min Estimated GFR (MDRD) > 60 (>60) BUN/Creatinine Ratio 10.0 (9-20) Glucose 240 H D (80-116) mg/dL POC Glucose (80-116) mg/dL Calcium 8.4 L (8.6-10.2) mg/dL Total Bilirubin 0.6 (0.1-1.3) mg/dL AST 17 D (5-25) IU/L ALT 31 D (12-36) U/L Alkaline Phosphatase 115 H (56-112) IU/L Total Protein 6.8 (6.0-8.0) g/dL Albumin 3.1 L (3.2-4.6) g/dL Globulin 3.7 g/dL Albumin/Globulin Ratio 0.8 Lipase 256 (73-393) U/L SARS-CoV-2 RNA (SAVITA) (NEGATIVE) Med Orders - Current: Current Medications Hydrocodone Bitart/Acetaminophen (Acetaminophen/Hydrocodone 325-5 Mg Tab) 1 tab PO Q6H PRN PRN Reason: Breakthrough Pain Aripiprazole (Aripiprazole 5 Mg Tab) 5 mg PO DAILY [facility] Baclofen (Baclofen 10 Mg Tab) 10 mg PO TID [facility] Last Admin: 07/18/21 21:19 Dose: 10 mg Documented by: Bupropion HCl (Bupropion 150 Mg Tab.Er) 300 mg PO DAILY [facility] Buspirone HCl (Buspirone 15 Mg Tab) 15 mg PO BID [facility] Last Admin: 07/18/21 21:16 Dose: 15 mg Documented by: Doxepin HCl (Doxepin 25 Mg Cap) 100 mg PO BEDTIME [facility] Last Admin: 07/18/21 21:19 Dose: 100 mg Documented by: Famotidine (Famotidine 20 Mg Tab) 20 mg PO BEDTIME [facility] Last Admin: 07/18/21 21:19 Dose: 20 mg Documented by: Gabapentin (Gabapentin 600 Mg Tab) 600 mg PO TID [facility] Last Admin: 07/18/21 21:19 Dose: 600 mg Documented by: Non-Formulary Medication (Morphine Pain Pump) 1 unit .XX ASDIRECTED [facility] Ondansetron HCl (Ondansetron 4 Mg/2 Ml Sdv) 4 mg IV Q4H PRN PRN Reason: Nausea/Vomiting Last Admin: 07/19/21 04:31 Dose: 4 mg Documented by: Pantoprazole Sodium (Pantoprazole 40 Mg Tab.Cr) 40 mg PO DAILY@0600 [facility] Prazosin HCl (Prazosin 1 Mg Cap) 3 mg PO BEDTIME [facility] Last Admin: 07/18/21 21:16 Dose: 3 mg Documented by: Ropinirole HCl (Ropinirole 1 Mg Tab) 1 mg PO BID [facility] Last Admin: 07/18/21 21:19 Dose: 1 mg Documented by: Sodium Chloride (Sodium Chloride 0.9% 10 Ml Syringe) 10 ml FLUSH ASDIRECTED PRN PRN Reason: Keep Vein Open Discontinued Medications Sodium Chloride (Normal Saline) 1,000 mls @ 125 mls/hr IV ASDIRECTED [facility] Last Admin: 07/19/21 06:51 Dose: 125 mls/hr Documented by: Influenza Virus Vaccine (Pharmacy To Dose - Influenza Vaccine) 1 each IM ONETIME ONE Stop: 07/18/21 17:50 Influenza Virus Vaccine (Flu Vacc [id number](6mos Up)/Pf 60 Mcg/0.5 Ml Syringe) 60 mcg IM .ONCE ONE Stop: 07/18/21 18:01 Morphine Sulfate (Morphine 2 Mg/Ml Syringe) 2 mg IVPUSH Q2H PRN PRN Reason: Pain (severe 7-10) Last Admin: 07/19/21 07:27 Dose: 2 mg Documented by: Non-Formulary Medication (Prazosin Hcl [Prazosin]) 2 mg PO BEDTIME [facility]K Pantoprazole Sodium (Pantoprazole 40 Mg Tab.Cr) 40 mg PO ACBREAKFAST [facility] Last Admin: 07/19/21 06:51 Dose: 40 mg Documented by: - Exam General: Alert HEENT: Pupils Equal Neck: Supple Lungs: Clear to Auscultation Cardiovascular: Regular Rate GI/Abdominal Exam: Normal Bowel Sounds, Soft. No: Distended, Guarding, Tender, Mass (Female) Exam: Deferred - Patient Data Lab Results Last 24 hrs: Laboratory Results - last 24 hr 07/18/21 07/18/21 07/19/21 Range/Units 13:28 14:16 07:04 WBC 5.9 (3.0-10.3) x10-3/uL RBC 4.86 (3.60-5.20) x10(6)uL Hgb 15.2 (11.4-15.5) g/dL Hct 45.0 (34.2-48.2) % MCV 92.6 (76.7-100.5) fL MCH 31.2 (23.9-33.9) pg MCHC 33.7 (31.9-34.8) g/dL RDW 14.4 (12.3-16.5) % Plt Count 176 (151-488) x10(3)uL MPV 8.9 (7.1-12.4) fL Neut % (Auto) 63.8 (30.8-76.2) % Lymph % (Auto) 25.2 (18.4-52.1) % [place] % (Auto) 8.0 (4.4-15.7) % Eos % (Auto) 2.3 (0.6-8.1) % Baso % (Auto) 0.7 (0.2-1.5) % Neut # (Auto) 3.8 (1.5-6.3) x10-3/uL Lymph # (Auto) 1.5 (1.0-4.4) x10-3/uL [place] # (Auto) 0.5 (0.3-1.0) x10-3/uL Eos # (Auto) 0.1 (0.0-0.8) x10-3/uL Baso # (Auto) 0.0 (0.0-0.1) x10-3/uL Sodium (135-145) mmol/L Potassium (3.5-5.3) mmol/L Chloride (100-110) mmol/L Carbon Dioxide (21-32) mmol/L BUN (7-18) mg/dL Creatinine (0.55-1.02) mg/dL Est Cr Clr Drug Dosing mL/min Estimated GFR (MDRD) (>60) BUN/Creatinine Ratio (9-20) Glucose (80-116) mg/dL POC Glucose 287 H (80-116) mg/dL Calcium (8.6-10.2) mg/dL Total Bilirubin (0.1-1.3) mg/dL AST (5-25) IU/L ALT (12-36) U/L Alkaline Phosphatase (56-112) IU/L Total Protein (6.0-8.0) g/dL Albumin (3.2-4.6) g/dL Globulin g/dL Albumin/Globulin Ratio Lipase (73-393) U/L SARS-CoV-2 RNA ([place]) Negative (NEGATIVE) 07/19/21 07/19/21 Range/Units 07:04 07:04 WBC (3.0-10.3) x10-3/uL RBC (3.60-5.20) x10(6)uL Hgb (11.4-15.5) g/dL Hct (34.2-48.2) % MCV (76.7-100.5) fL MCH (23.9-33.9) pg MCHC (31.9-34.8) g/dL RDW (12.3-16.5) % Plt Count (151-488) x10(3)uL MPV (7.1-12.4) fL Neut % (Auto) (30.8-76.2) % Lymph % (Auto) (18.4-52.1) % [place] % (Auto) (4.4-15.7) % Eos % (Auto) (0.6-8.1) % Baso % (Auto) (0.2-1.5) % Neut # (Auto) (1.5-6.3) x10-3/uL Lymph # (Auto) (1.0-4.4) x10-3/uL [place] # (Auto) (0.3-1.0) x10-3/uL Eos # (Auto) (0.0-0.8) x10-3/uL Baso # (Auto) (0.0-0.1) x10-3/uL Sodium 141 (135-145) mmol/L Potassium 3.9 (3.5-5.3) mmol/L Chloride 106 (100-110) mmol/L Carbon Dioxide 26 (21-32) mmol/L BUN 9 (7-18) mg/dL Creatinine 0.9 (0.55-1.02) mg/dL Est Cr Clr Drug Dosing 114.35 mL/min Estimated GFR (MDRD) > 60 (>60) BUN/Creatinine Ratio 10.0 (9-20) Glucose 240 H D (80-116) mg/dL POC Glucose (80-116) mg/dL Calcium 8.4 L (8.6-10.2) mg/dL Total Bilirubin 0.6 (0.1-1.3) mg/dL AST 17 D (5-25) IU/L ALT 31 D (12-36) U/L Alkaline Phosphatase 115 H (56-112) IU/L Total Protein 6.8 (6.0-8.0) g/dL Albumin 3.1 L (3.2-4.6) g/dL Globulin 3.7 g/dL Albumin/Globulin Ratio 0.8 Lipase 256 (73-393) U/L SARS-CoV-2 RNA (SA[facility]ITA) (NEGATIVE) Result Diagrams: 07/19/21 07:04 07/19/21 07:04 Sepsis Event Note - Evaluation Sepsis Screening Result: No Definite Risk - Focused Exam Vital Signs: Vital Signs Temp Pulse Resp BP BP Pulse Ox 07/19/21 07:56 98.1 F 68 18 152/73 H 92 L 07/19/21 06:00 97.4 F 75 18 142/72 H 93 L 07/19/21 02:00 97.3 F 81 16 145/79 H 91 L 07/18/21 22:00 98.4 F 74 17 142/71 H 93 L 07/18/21 21:16 142/71 H - Problem List & Annotations (1) Acute pancreatitis SNOMED Code(s): 306793974 Code(s): K85.90 - ACUTE PANCREATITIS WITHOUT NECROSIS OR INFECTION, UNSP Status: Acute Current Visit: No Qualifiers: Pancreatitis type: idiopathic Acute pancreatitis complication: no infection or necrosis Qualified Code(s): K85.00 - Idiopathic acute pancreatitis without necrosis or infection (2) Liver cirrhosis SNOMED Code(s): 63778735 Code(s): K74.60 - UNSPECIFIED CIRRHOSIS OF LIVER Status: Acute Current Visit: Yes Qualifiers: Hepatic cirrhosis type: alcoholic cirrhosis (3) Chronic radicular low back pain SNOMED Code(s): 29498922, 96060239 Code(s): M54.16 - RADICULOPATHY, LUMBAR REGION; G89.29 - OTHER CHRONIC PAIN Status: Chronic Current Visit: Yes (4) Tobacco abuse SNOMED Code(s): 596610065 Code(s): Z72.0 - TOBACCO USE Status: Chronic Current Visit: Yes (5) Diabetes mellitus type 2, uncontrolled SNOMED Code(s): 306657463, 840716887 Code(s): E11.65 - TYPE 2 DIABETES MELLITUS WITH HYPERGLYCEMIA Status: Acute Current Visit: No (6) TRIPP (generalized anxiety disorder) SNOMED Code(s): 56839787 Code(s): F41.1 - GENERALIZED ANXIETY DISORDER Status: Acute Current Visit: No (7) Restless leg SNOMED Code(s): 27052954 Code(s): G25.81 - RESTLESS LEGS SYNDROME Status: Chronic Current Visit: No - Problem List Review Problem List Initiated/Reviewed/Updated: Yes - My Orders Last 24 Hours: My Active Orders 07/18/21 13:30 Admission Status [Patient Status] [ADT] Routine 07/18/21 13:51 Height and Weight [RC] 06 Oxygen Therapy [RC] PRN Up ad Brit [RC] ASDIRECTED VTE/DVT Education [RC] Per Unit Routine Vital Signs [RC] Q4H Ondansetron [Zofran] 4 mg IV Q4H PRN Sodium Chloride 0.9% [Saline Flush] 10 ml FLUSH ASDIRECTED PRN Peripheral IV Insertion Adult [OM.PC] Routine Resuscitation Status Routine 07/18/21 17:15 Morphine Pain Pump 1 unit .XX ASDIRECTED 07/18/21 17:49 Vaccine to be Administered/Admin Charge [RC] ASDIRECTED 07/18/21 21:00 Baclofen [Lioresal] 10 mg PO TID Doxepin [SINEquan] 100 mg PO BEDTIME Famotidine [Pepcid] 20 mg PO BEDTIME Gabapentin [Neurontin] 600 mg PO TID Prazosin [Minpress] 3 mg PO BEDTIME busPIRone [Buspar] 15 mg PO BID rOPINIRole [Requip] 1 mg PO BID 07/19/21 08:57 Acetaminophen/HYDROcodone [[place] 325-5 MG] 1 tab PO Q6H PRN 07/19/21 08:58 Ketorolac [Toradol] 15 mg IVPUSH Q6H PRN 07/19/21 09:00 ARIPiprazole [Abilify] 5 mg PO DAILY buPROPion [Wellbutrin XL] 300 mg PO DAILY 07/19/21 Lunch Consistent Carbohydrate Diet [DIET] 07/20/21 05:11 C-REACTIVE PROTEIN [CHEM] AM COMPREHENSIVE METABOLIC PN,CMP [CHEM] AM LIPASE [CHEM] AM 07/20/21 06:00 Pantoprazole [ProTONIX] 40 mg PO DAILY@0600 - Plan Plan:: I reviewed the CT scan from 2 days ago, and a lipase level this morning. It shows improvement of the subjective pancreatitis. I will advance her diet, stop IV morphine,switch to oral narcotics for pain control with the plan to discharg e home tomorrow
[2021-07-19] MEDS: Baclofen 10 MG Tab PO SCH ×3 (09:15→20:11)
[2021-07-19] MEDS: rOPINIRole 1 MG Tab PO SCH ×2 (09:15→20:12)
[2021-07-19] MEDS: ARIPiprazole 5 MG Tab PO SCH (09:15)
[2021-07-19] MEDS: busPIRone 15 MG Tab PO SCH ×2 (09:15→20:12)
[2021-07-19] MEDS: buPROPion 150 MG Tab.ER PO SCH (09:16)
[2021-07-19] MEDS: Gabapentin 600 MG Tab PO SCH ×3 (09:19→20:11)
[2021-07-19] MEDS: Acetaminophen/HYDROcodone 325-5 MG Tab PO PRN ×2 (09:23→16:36)
[2021-07-19] MEDS: Sodium Chloride 0.9% 10 ML Syringe FLUSH PRN ×2 (16:45→23:27)
[2021-07-19] MEDS ORDERED: Glucagon,Human Recombinant 1 MG Vial IM PRN (17:06)
[2021-07-19] MEDS ORDERED: 50% Dextrose in Water 50 ML Syringe IVPUSH PRN (17:06)
[2021-07-19] MEDS: Ketorolac 15 MG/ML SDV IVPUSH PRN ×2 (17:11→23:26)
[2021-07-19] MEDS ORDERED: Insulin Lispro 100 Unit/ML 3 ML KwikPen SUBCUT ONE (20:08)
[2021-07-19] MEDS: Insulin Lispro 100 Unit/ML 3 ML KwikPen SUBCUT SCH (20:10)
[2021-07-19] MEDS: Famotidine 20 MG Tab PO SCH (20:12)
[2021-07-19] MEDS: Doxepin 25 MG Cap PO SCH (20:12)
[2021-07-19] MEDS: Prazosin 1 MG Cap PO SCH (20:15)
[2021-07-20] MEDS: Sodium Chloride 0.9% 10 ML Syringe FLUSH PRN (05:29)
[2021-07-20] MEDS: Ondansetron 4 MG/2 ML SDV IV PRN (05:30)
[2021-07-20] MEDS: Ketorolac 15 MG/ML SDV IVPUSH PRN (05:30)
[2021-07-20] MEDS ORDERED: Pantoprazole 40 MG Tab.CR PO SCH (06:00)
[2021-07-20] MEDS: Insulin Lispro 100 Unit/ML 3 ML KwikPen SUBCUT SCH (07:47)
[2021-07-20] MEDS: Baclofen 10 MG Tab PO SCH (09:52)
[2021-07-20] MEDS: buPROPion 150 MG Tab.ER PO SCH (09:52)
[2021-07-20] MEDS: ARIPiprazole 5 MG Tab PO SCH (09:52)
[2021-07-20] MEDS: rOPINIRole 1 MG Tab PO SCH (09:53)
[2021-07-20] MEDS: busPIRone 15 MG Tab PO SCH (09:53)
[2021-07-20] MEDS: Gabapentin 600 MG Tab PO SCH (09:56)
[2021-07-20 10:30] VITALS: BP 119/67; PULSE 70
--- NOTE | 2021-07-21 02:41 | DISCH ---
DISCHARGE DATE: 07/20/2021 REASON FOR ADMISSION: Acute mild pancreatitis, idiopathic. DISCHARGE DIAGNOSIS: Acute mild pancreatitis, idiopathic. SECONDARY DIAGNOSES: 1. Chronic pain syndrome. 2. Restless legs syndrome. 3. Anxiety. 4. Depression. 5. Chronic back pain, on a morphine pump. BRIEF HISTORY AND HOSPITAL COURSE: This is a 65-year-old female who came in with an exacerbation of abdominal pain. A CT done the previous day before admission showed mild pancreatitis. Lipase was slightly elevated. She was given fluids and kept n.p.o. for the 1st 24 hours. She complained of nausea and abdominal pain, which was treated initially with morphine IV and then switched to oral tramadol and Toradol. She is ready to be discharged today having tolerated fluids and oral food, and will see Dr. Wade in 1 week, but she does have a GI followup appointment as well and that is in the works on what date they will be seeing her. I spent more than 35 minutes in the discharge. /[id number] EDEL/ALBA
== END 2021-07-20 11:15 | disposition home or self-care (01) | DRG 440 ==
LOC: FB.MS 13:09
PROVIDERS: ADMIT Family Medicine; ATTEND Family Medicine
DX: K85.00 Idiopathic acute pancreatitis without necrosis or infection (principal); G25.81 Restless legs syndrome; F32.A Depression, unspecified; M54.9 Dorsalgia, unspecified; G89.4 Chronic pain syndrome; H54.7 Unspecified visual loss; E78.00 Pure hypercholesterolemia, unspecified; I10 Essential (primary) hypertension; E66.9 Obesity, unspecified; Z96.659 Presence of unspecified artificial knee joint; Z20.822 Contact with and (suspected) exposure to COVID-19; K70.30 Alcoholic cirrhosis of liver without ascites; M54.16 Radiculopathy, lumbar region; E11.65 Type 2 diabetes mellitus with hyperglycemia; F41.1 Generalized anxiety disorder; Z88.0 Allergy status to penicillin; Z88.1 Allergy status to other antibiotic agents; Z79.4 Long term (current) use of insulin; Z96.669 Presence of unspecified artificial ankle joint; Z96.619 Presence of unspecified artificial shoulder joint; Z79.899 Other long term (current) drug therapy; Z90.710 Acquired absence of both cervix and uterus; Z90.49 Acquired absence of other specified parts of digestive tract; Z68.39 Body mass index [BMI] 39.0-39.9, adult
CPT/HCPCS: 36415; 74177; 80053; 82947; 83690; 85025; 86140; 90686; A9270-GY; G0008; J1815; J1885; J2270; J2405; J7030; Q9963; Q9967; U0002

== ENCOUNTER 2023-09-19 14:50 | Emergency (ER) | payer MEDICARE ==
[2023-09-19] MEDS ORDERED: Acetaminophen/oxyCODONE 325-5 MG Tab PO ONE (14:51)
[2023-09-19] MEDS ORDERED: HYDROmorphone 2 MG/ML SDV IM ONE (15:10)
[2023-09-19] MEDS ORDERED: Acetaminophen/oxyCODONE 325-5 MG Tab PO STA (15:10)
[2023-09-19 19:34] VITALS: BP 148/60; PULSE 58
== END 2023-09-19 18:43 | disposition home or self-care (01) ==
LOC: FB.ED 14:50
DX: M54.81 Occipital neuralgia (principal); M54.12 Radiculopathy, cervical region; I10 Essential (primary) hypertension; E11.9 Type 2 diabetes mellitus without complications; E66.9 Obesity, unspecified; E78.00 Pure hypercholesterolemia, unspecified; Z90.710 Acquired absence of both cervix and uterus; Z90.49 Acquired absence of other specified parts of digestive tract; Z79.4 Long term (current) use of insulin; Z88.0 Allergy status to penicillin; Z88.8 Allergy status to other drugs, medicaments and biological substances; Z79.899 Other long term (current) drug therapy
CPT/HCPCS: 70450; 72125; 96372; 99284; A9270; J1170

== ENCOUNTER 2023-10-11 15:11 | Inpatient (IN) | payer MEDICARE ==
[2023-10-11] MEDS ORDERED: Ondansetron 4 MG Tab.DIS PO PRN (16:40)
[2023-10-11] MEDS ORDERED: 50% Dextrose in Water 50 ML Syringe IVPUSH PRN (16:50)
[2023-10-11] MEDS ORDERED: Glucagon,Human Recombinant 1 MG Vial IM PRN (16:50)
[2023-10-11] MEDS: Sodium Chloride 0.9% 10 ML Syringe FLUSH PRN ×3 (17:00→21:16)
[2023-10-11] MEDS ORDERED: Vancomycin 1 GM SDV IV SCH (17:00)
[2023-10-11] MEDS ORDERED: MORPHINE PAIN PUMP SCH (17:00)
[2023-10-11 18:14] LABS: BASOPHILS PERCENT AUTO 0.7 % (0.2-1.5); EOSINOPHILS ABSOLUTE AUTO 0.2 x10-3/uL (0.0-0.8); EOSINOPHILS PERCENT AUTO 2.8 % (0.6-8.1); HEMATOCRIT 37.2 % (34.2-48.2); HEMOGLOBIN 12.5 g/dL (11.4-15.5); LYMPHOCYTES ABSOLUTE AUTO 1.7 x10-3/uL (1.0-4.4); LYMPHOCYTES PERCENT AUTO 24.5 % (18.4-52.1); MEAN CORPUSCULAR HEMOGLOBIN 30.3 pg (23.9-33.9); MEAN CORPUSCULAR HGB CONC 33.7 g/dL (31.9-34.8); MEAN CORPUSCULAR VOLUME 90.1 fL (76.7-100.5); MEAN PLATELET VOLUME 9.2 fL (7.1-12.4); MONOCYTES ABSOLUTE AUTO 0.6 x10-3/uL (0.3-1.0); MONOCYTES PERCENT AUTO 9.2 % (4.4-15.7); NEUTROPHILS ABSOLUTE AUTO 4.4 x10-3/uL (1.5-6.3); NEUTROPHILS PERCENT AUTO 62.8 % (30.8-76.2); PLATELET COUNT,PLT 215 x10(3)uL (151-488); RED BLOOD CELL COUNT 4.12 x10(6)uL (3.60-5.20); RED CELL DISTRIBUTION WIDTH 14.4 % (12.3-16.5)
[2023-10-11] MEDS ORDERED: ceFAZolin 2 GM in Sodium Chloride 0.9% 50 ML IV ONE (18:15)
[2023-10-11 18:27] LABS: A/G RATIO 0.8; ALANINE AMINOTRANSFERASE,ALT 26 U/L (12-36); ALBUMIN 3.2 g/dL (3.2-4.6); ALKALINE PHOSPHATASE 92 IU/L (56-112); ASPARTATE AMNIOTRANSFERASE,AST 22 IU/L (5-25); BILIRUBIN TOTAL 0.2 mg/dL (0.1-1.3); BLOOD UREA NITROGEN,BUN 9 mg/dL (7-18); BUN/CREATININE RATIO 11.3 (9-20); CALCIUM 8.9 mg/dL (8.6-10.2); CARBON DIOXIDE,CO2 31 mmol/L (21-32); CHLORIDE,CL 103 mmol/L (100-110); CREATININE 0.8 mg/dL (0.55-1.02); EST CRCL DRUG DOSING (CG) 62.24 mL/min; ESTIMATED GFR 81 mL/min (>60); GLUCOSE RANDOM 86 mg/dL (80-116); POTASSIUM,K 3.5 mmol/L (3.5-5.3); SODIUM,NA 141 mmol/L (135-145)
[2023-10-11] MEDS: Insulin Lispro 100 Unit/ML 3 ML KwikPen SUBCUT SCH (18:42)
[2023-10-11] MEDS ORDERED: ceFAZolin 2 GM Vial ONE (18:47)
[2023-10-11] MEDS ORDERED: VANCOmycin 2 GM/400 ML 400 ML ONE ×2 (18:47→18:49)
[2023-10-11] MEDS ORDERED: VANCOmycin 2 GM/400 ML 2 GM in Premix Bag 1 BAG IV ONE (19:00)
[2023-10-11] MEDS ORDERED: Prazosin 1 MG Cap PO SCH ×2 (21:00)
[2023-10-11] MEDS: Famotidine 20 MG Tab PO SCH (21:19)
[2023-10-11] MEDS: Gabapentin 300 MG Cap PO SCH (21:19)
[2023-10-11] MEDS: Doxepin 25 MG Cap PO SCH (21:19)
[2023-10-11] MEDS: Baclofen 10 MG Tab PO SCH (21:19)
[2023-10-11] MEDS: oxyCODONE 5 MG Tab PO PRN (21:20)
[2023-10-11] MEDS: Enoxaparin 40 MG/0.4 ML Syringe SUBCUT SCH (21:21)
[2023-10-11] MEDS: busPIRone 15 MG Tab PO SCH (22:11)
[2023-10-11] MEDS: rOPINIRole 0.5 MG Tab PO SCH (22:11)
[2023-10-12] MEDS ORDERED: ceFAZolin 2 GM in Sodium Chloride 0.9% 50 ML IV SCH (02:00)
[2023-10-12] MEDS ORDERED: ceFAZolin 2 GM Vial ONE (02:50)
[2023-10-12] MEDS: Sodium Chloride 0.9% 10 ML Syringe FLUSH PRN ×3 (02:58→23:34)
[2023-10-12] MEDS: ceFAZolin 2 GM Vial IVPUSH SCH ×3 (03:00→18:50)
[2023-10-12 03:47] LABS: BILIRUBIN,URINE NEGATIVE (NEGATIVE); GLUCOSE,URINE NORMAL (NORMAL); KETONES,URINE NEGATIVE (NEGATIVE); LEUKOCYTE ESTERASE,URINE NEGATIVE (NEGATIVE); NITRITE,URINE NEGATIVE (NEGATIVE); OCCULT BLOOD,URINE NEGATIVE (NEGATIVE); PROTEIN,URINE NEGATIVE (NEGATIVE); UROBILINOGEN,URINE NORMAL (NEGATIVE)
[2023-10-12 03:52] LABS: APPEARANCE,URINE CLEAR (CLEAR); BACTERIA,URINE FEW (NS); COLOR,URINE YELLOW (YELLOW); RBC,URINE 0-5 (0-5); SQUAMOUS EPITHELIAL CELLS,UR FEW (NS,R,O); WBC,URINE 0-5 (0-5)
[2023-10-12] MEDS: Pantoprazole 40 MG Tab.CR PO SCH (07:05)
[2023-10-12] MEDS ORDERED: Insulin Lispro 100 Unit/ML 3 ML KwikPen SUBCUT ONE (07:55)
[2023-10-12] MEDS: Insulin Lispro 100 Unit/ML 3 ML KwikPen SUBCUT SCH ×3 (07:58→17:56)
[2023-10-12] MEDS ORDERED: Insulin Glargine,Human Rec. Analog 100 Units/ML 3 ML Pen SUBCUT ONE (09:00)
[2023-10-12] MEDS: Spironolactone 50 MG Tab PO SCH (09:15)
[2023-10-12] MEDS: Potassium Chloride 20 MEQ Tab.ER PO SCH (09:15)
[2023-10-12] MEDS: Insulin Glargine,Human Rec. Analog 100 Units/ML 3 ML Pen SUBCUT SCH (09:16)
[2023-10-12] MEDS: oxyCODONE 5 MG Tab PO PRN ×2 (09:17→17:33)
[2023-10-12] MEDS: atorvaSTATin 10 MG Tab PO SCH (09:17)
[2023-10-12] MEDS: Montelukast 10 MG Tab PO SCH (09:17)
[2023-10-12] MEDS: Gabapentin 300 MG Cap PO SCH ×3 (09:17→21:17)
[2023-10-12] MEDS: Baclofen 10 MG Tab PO SCH ×3 (09:17→21:22)
[2023-10-12] MEDS: busPIRone 15 MG Tab PO SCH ×2 (09:21→21:07)
[2023-10-12] MEDS: buPROPion 150 MG Tab.ER PO SCH (09:34)
[2023-10-12] MEDS: VANCOmycin 1 GM/200 ML 1 GM in Premix Bag 1 BAG IV SCH ×2 (11:49→23:27)
[2023-10-12] MEDS ORDERED: Acetaminophen Soln 650 MG/20.3 ML UD Cup PO PRN (11:59)
[2023-10-12] MEDS ORDERED: Acetaminophen 325 MG Tab PO PRN (15:59)
[2023-10-12] MEDS: metFORMIN 500 MG Tab PO SCH (17:39)
[2023-10-12] MEDS ORDERED: Prazosin 1 MG Cap PO SCH (21:00)
[2023-10-12] MEDS: rOPINIRole 0.5 MG Tab PO SCH (21:09)
[2023-10-12] MEDS: Famotidine 20 MG Tab PO SCH (21:16)
[2023-10-12] MEDS: Doxepin 25 MG Cap PO SCH (21:17)
[2023-10-12] MEDS: Enoxaparin 40 MG/0.4 ML Syringe SUBCUT SCH (21:18)
[2023-10-13] MEDS: ceFAZolin 2 GM Vial IVPUSH SCH ×2 (03:40→10:14)
[2023-10-13] MEDS: Sodium Chloride 0.9% 10 ML Syringe FLUSH PRN (03:44)
[2023-10-13] MEDS: oxyCODONE 5 MG Tab PO PRN (06:29)
[2023-10-13] MEDS: Pantoprazole 40 MG Tab.CR PO SCH (06:29)
[2023-10-13 07:16] LABS: BASOPHILS PERCENT AUTO 0.6 % (0.2-1.5); EOSINOPHILS ABSOLUTE AUTO 0.2 x10-3/uL (0.0-0.8); EOSINOPHILS PERCENT AUTO 3.8 % (0.6-8.1); HEMATOCRIT 38.7 % (34.2-48.2); HEMOGLOBIN 12.7 g/dL (11.4-15.5); LYMPHOCYTES ABSOLUTE AUTO 1.3 x10-3/uL (1.0-4.4); LYMPHOCYTES PERCENT AUTO 29.4 % (18.4-52.1); MEAN CORPUSCULAR HGB CONC 32.9 g/dL (31.9-34.8); MEAN CORPUSCULAR VOLUME 91.1 fL (76.7-100.5); MEAN PLATELET VOLUME 9.4 fL (7.1-12.4); MONOCYTES ABSOLUTE AUTO 0.4 x10-3/uL (0.3-1.0); MONOCYTES PERCENT AUTO 9.7 % (4.4-15.7); NEUTROPHILS ABSOLUTE AUTO 2.6 x10-3/uL (1.5-6.3); NEUTROPHILS PERCENT AUTO 56.5 % (30.8-76.2); PLATELET COUNT,PLT 182 x10(3)uL (151-488); RED BLOOD CELL COUNT 4.24 x10(6)uL (3.60-5.20); RED CELL DISTRIBUTION WIDTH 14.6 % (12.3-16.5); WHITE BLOOD CELL COUNT,WBC 4.5 x10-3/uL (3.0-10.3)
[2023-10-13] MEDS: Insulin Lispro 100 Unit/ML 3 ML KwikPen SUBCUT SCH (08:40)
[2023-10-13] MEDS: metFORMIN 500 MG Tab PO SCH (08:40)
[2023-10-13] MEDS: busPIRone 15 MG Tab PO SCH (08:41)
[2023-10-13] MEDS: Potassium Chloride 20 MEQ Tab.ER PO SCH (08:41)
[2023-10-13] MEDS: Insulin Glargine,Human Rec. Analog 100 Units/ML 3 ML Pen SUBCUT SCH (08:41)
[2023-10-13] MEDS: atorvaSTATin 10 MG Tab PO SCH (08:42)
[2023-10-13] MEDS: buPROPion 150 MG Tab.ER PO SCH (08:42)
[2023-10-13] MEDS: Gabapentin 300 MG Cap PO SCH (08:42)
[2023-10-13] MEDS: Baclofen 10 MG Tab PO SCH (08:42)
[2023-10-13] MEDS: Montelukast 10 MG Tab PO SCH (08:42)
[2023-10-13] MEDS: Spironolactone 50 MG Tab PO SCH ×2 (08:59→09:11)
[2023-10-13] MEDS: VANCOmycin 1 GM/200 ML 1 GM in Premix Bag 1 BAG IV SCH (10:14)
[2023-10-13] MEDS ORDERED: Sulfamethoxazole/Trimethoprim 800-160 MG Tab PO ONE (11:39)
[2023-10-13 14:57] VITALS: BP 120/63; PULSE 63
== END 2023-10-13 11:40 | disposition home or self-care (01) | DRG 603 ==
LOC: FB.MS 15:32
PROVIDERS: ADMIT Family Medicine; ATTEND Family Medicine
DX: L03.116 Cellulitis of left lower limb (principal); Z68.41 Body mass index [BMI] 40.0-44.9, adult; G89.4 Chronic pain syndrome; G25.81 Restless legs syndrome; E78.00 Pure hypercholesterolemia, unspecified; Z51.5 Encounter for palliative care; I10 Essential (primary) hypertension; J44.9 Chronic obstructive pulmonary disease, unspecified; K21.9 Gastro-esophageal reflux disease without esophagitis; K74.60 Unspecified cirrhosis of liver; M54.9 Dorsalgia, unspecified; F41.9 Anxiety disorder, unspecified; F32.A Depression, unspecified; G47.00 Insomnia, unspecified; E11.9 Type 2 diabetes mellitus without complications; Z96.653 Presence of artificial knee joint, bilateral; E66.9 Obesity, unspecified; Z90.49 Acquired absence of other specified parts of digestive tract; Z79.899 Other long term (current) drug therapy; Z88.1 Allergy status to other antibiotic agents; Z79.4 Long term (current) use of insulin; Z88.0 Allergy status to penicillin; Z98.890 Other specified postprocedural states; Z90.710 Acquired absence of both cervix and uterus; Z98.1 Arthrodesis status; Z87.891 Personal history of nicotine dependence
CPT/HCPCS: 36415; 80053; 80202; 81001; 82947; 83605; 85025; 86140; 87040; 99222; 99232; 99238; A9270-GY; J0690; J1650; J1815; J1815-GY; J3370; J3490

== ENCOUNTER 2024-04-06 15:04 | Emergency (ER) | payer MEDICARE ==
[2024-04-06] MEDS ORDERED: Sodium Chloride 0.9% 10 ML Syringe FLUSH PRN (15:28)
[2024-04-06] MEDS: HYDROmorphone 2 MG/ML SDV IVPUSH STA (15:48)
[2024-04-06 15:51] LABS: BASOPHILS ABSOLUTE AUTO 0.1 x10-3/uL (0.0-0.1); BASOPHILS PERCENT AUTO 0.9 % (0.2-1.5); EOSINOPHILS ABSOLUTE AUTO 0.5 x10-3/uL (0.0-0.8); EOSINOPHILS PERCENT AUTO 5.9 % (0.6-8.1); HEMATOCRIT 44.3 % (34.2-48.2); HEMOGLOBIN 14.4 g/dL (11.4-15.5); LYMPHOCYTES ABSOLUTE AUTO 1.7 x10-3/uL (1.0-4.4); LYMPHOCYTES PERCENT AUTO 20.2 % (18.4-52.1); MEAN CORPUSCULAR HEMOGLOBIN 29.6 pg (23.9-33.9); MEAN CORPUSCULAR HGB CONC 32.5 g/dL (31.9-34.8); MEAN CORPUSCULAR VOLUME 91.1 fL (76.7-100.5); MEAN PLATELET VOLUME 9.3 fL (7.1-12.4); MONOCYTES ABSOLUTE AUTO 0.6 x10-3/uL (0.3-1.0); NEUTROPHILS ABSOLUTE AUTO 5.5 x10-3/uL (1.5-6.3); PLATELET COUNT,PLT 217 x10(3)uL (151-488); RED BLOOD CELL COUNT 4.87 x10(6)uL (3.60-5.20); RED CELL DISTRIBUTION WIDTH 14.5 % (12.3-16.5); WHITE BLOOD CELL COUNT,WBC 8.3 x10-3/uL (3.0-10.3)
[2024-04-06] MEDS: Sodium Chloride 0.9% 1,000 ML IV SCH (15:56)
[2024-04-06 16:01] LABS: BLOOD UREA NITROGEN,BUN 13 mg/dL (7-18); BUN/CREATININE RATIO 14.4 (9-20); CALCIUM 9.2 mg/dL (8.6-10.2); CARBON DIOXIDE,CO2 24 mmol/L (21-32); CHLORIDE,CL 100 mmol/L (100-110); CREATININE 0.9 mg/dL (0.55-1.02); ESTIMATED GFR 71 mL/min (>60); GLUCOSE RANDOM 226 mg/dL (80-116); SODIUM,NA 137 mmol/L (135-145)
[2024-04-06 16:06] LABS: A/G RATIO 0.9; ALANINE AMINOTRANSFERASE,ALT 27 U/L (12-36); ALBUMIN 3.5 g/dL (3.2-4.6); ALKALINE PHOSPHATASE 98 IU/L (56-112); AMYLASE 20 U/L (25-115); ASPARTATE AMNIOTRANSFERASE,AST 16 IU/L (5-25); BILIRUBIN TOTAL 0.6 mg/dL (0.1-1.3); PROTEIN TOTAL,TP 7.5 g/dL (6.0-8.0)
[2024-04-06] MEDS: Iopamidol 755 Mg/ML 100 ML Bottle IV SCH (16:20)
[2024-04-06] MEDS: Ketorolac 30 MG/ML SDV IVPUSH ONE (17:04)
[2024-04-06] MEDS: Ondansetron 4 MG/2 ML SDV IVPUSH ONE (17:04)
[2024-04-06 19:54] VITALS: BP 141/77; PULSE 64
== END 2024-04-06 19:45 | disposition home or self-care (01) ==
LOC: FB.ED 15:04
DX: G89.18 Other acute postprocedural pain (principal); R10.32 Left lower quadrant pain; I10 Essential (primary) hypertension; E78.00 Pure hypercholesterolemia, unspecified; J44.9 Chronic obstructive pulmonary disease, unspecified; K21.9 Gastro-esophageal reflux disease without esophagitis; Z88.0 Allergy status to penicillin; Z88.1 Allergy status to other antibiotic agents; Z79.899 Other long term (current) drug therapy; Z90.49 Acquired absence of other specified parts of digestive tract; Z90.710 Acquired absence of both cervix and uterus
CPT/HCPCS: 36415; 74177; 80053; 82150; 83690; 85025; 96374; 96375; 99283; 99284-25; J1170; J1885; J2405; J7030; Q9967

== ENCOUNTER 2024-05-03 10:39 | Inpatient (IN) | payer MEDICARE ==
[2024-05-03 11:17] LABS: BASOPHILS ABSOLUTE AUTO 0.1 x10-3/uL (0.0-0.1); BASOPHILS PERCENT AUTO 0.8 % (0.2-1.5); EOSINOPHILS ABSOLUTE AUTO 0.1 x10-3/uL (0.0-0.8); EOSINOPHILS PERCENT AUTO 1.1 % (0.6-8.1); HEMOGLOBIN 14.3 g/dL (11.4-15.5); LYMPHOCYTES ABSOLUTE AUTO 1.8 x10-3/uL (1.0-4.4); LYMPHOCYTES PERCENT AUTO 20.5 % (18.4-52.1); MEAN CORPUSCULAR HGB CONC 33.2 g/dL (31.9-34.8); MEAN CORPUSCULAR VOLUME 90.5 fL (76.7-100.5); MEAN PLATELET VOLUME 9.5 fL (7.1-12.4); MONOCYTES ABSOLUTE AUTO 0.7 x10-3/uL (0.3-1.0); MONOCYTES PERCENT AUTO 7.9 % (4.4-15.7); NEUTROPHILS ABSOLUTE AUTO 6.3 x10-3/uL (1.5-6.3); NEUTROPHILS PERCENT AUTO 69.7 % (30.8-76.2); PLATELET COUNT,PLT 251 x10(3)uL (151-488); RED BLOOD CELL COUNT 4.75 x10(6)uL (3.60-5.20); RED CELL DISTRIBUTION WIDTH 14.7 % (12.3-16.5)
[2024-05-03 11:21] LABS: BLOOD UREA NITROGEN,BUN 17 mg/dL (7-18); CALCIUM 9.2 mg/dL (8.6-10.2); CARBON DIOXIDE,CO2 25 mmol/L (21-32); CHLORIDE,CL 98 mmol/L (100-110); ESTIMATED GFR 62 mL/min (>60); GLUCOSE RANDOM 315 mg/dL (80-116); SODIUM,NA 134 mmol/L (135-145)
[2024-05-03 11:27] LABS: A/G RATIO 0.9; ALANINE AMINOTRANSFERASE,ALT 43 U/L (12-36); ALBUMIN 3.6 g/dL (3.2-4.6); ALKALINE PHOSPHATASE 76 IU/L (56-112); ASPARTATE AMNIOTRANSFERASE,AST 64 IU/L (5-25); MAGNESIUM 1.6 mg/dL (1.8-2.5); PROTEIN TOTAL,TP 7.7 g/dL (6.0-8.0)
[2024-05-03 11:30] LABS: C-REACTIVE PROTEIN 0.94 mg/dL (<0.50); TROPONIN I 10.4 pg/mL (4.0-60.3)
[2024-05-03 11:53] LABS: BILIRUBIN,URINE NEGATIVE (NEGATIVE); GLUCOSE,URINE >1000 mg/dL (NORMAL); KETONES,URINE 50 mg/dL (NEGATIVE); LEUKOCYTE ESTERASE,URINE NEGATIVE (NEGATIVE); NITRITE,URINE NEGATIVE (NEGATIVE); OCCULT BLOOD,URINE NEGATIVE (NEGATIVE); PROTEIN,URINE TRACE mg/dL (NEGATIVE); UROBILINOGEN,URINE NORMAL (NEGATIVE)
[2024-05-03 11:56] LABS: APPEARANCE,URINE CLEAR (CLEAR); BACTERIA,URINE RARE (NS); COLOR,URINE YELLOW (YELLOW); RBC,URINE NOT SEEN (0-5); SQUAMOUS EPITHELIAL CELLS,UR RARE (NS,R,O); WBC,URINE 0-5 (0-5)
[2024-05-03] MEDS ORDERED: Polyethylene Glycol 3350 Powder 17 GM Packet PO PRN (13:06)
[2024-05-03] MEDS: cefTRIAXone 2 GM Vial IVPUSH ONE (13:15)
[2024-05-03] MEDS: Sodium Chloride 0.9% 1,000 ML IV ONE (13:15)
[2024-05-03] MEDS: Iopamidol 755 Mg/ML 100 ML Bottle IV SCH (13:26)
[2024-05-03] MEDS ORDERED: Labetalol 20 MG/4 ML Syringe IVPUSH PRN (13:56)
[2024-05-03] MEDS ORDERED: Glucagon,Human Recombinant 1 MG Vial IM PRN ×2 (14:06→14:11)
[2024-05-03] MEDS ORDERED: 50% Dextrose in Water 50 ML Syringe IVPUSH PRN ×2 (14:06→14:11)
[2024-05-03 14:36] LABS: PROTHROMBIN TIME 10.4 sec (9.0-11.1)
[2024-05-03 14:38] LABS: PTT,PARTIAL THROMBOPLSTIN TIME 23.2 SECONDS (24.4-33.2)
[2024-05-03] MEDS: Sodium Chloride 0.9% 1,000 ML IV SCH (15:04)
[2024-05-03] MEDS: Magnesium Sulfate/Water 2 GM in Premix Bag 1 BAG IV ONE (15:05)
[2024-05-03] MEDS: VANCOmycin 1 GM/200 ML 1 GM in Premix Bag 1 BAG IV SCH (15:13)
[2024-05-03] MEDS: Enoxaparin 40 MG/0.4 ML Syringe SUBCUT SCH (15:14)
[2024-05-03] MEDS: Lisinopril 10 MG Tab PO SCH (15:24)
[2024-05-03] MEDS: oxyCODONE 5 MG Tab PO PRN (15:25)
[2024-05-03] MEDS ORDERED: Insulin Lispro 100 Unit/ML 3 ML KwikPen SUBCUT ONE (17:17)
[2024-05-03] MEDS: Insulin Lispro 100 Unit/ML 3 ML KwikPen SUBCUT SCH ×2 (17:42→17:43)
[2024-05-03] MEDS ORDERED: Insulin Glargine,Human Rec. Analog 100 Units/ML 3 ML Pen SUBCUT ONE (20:29)
[2024-05-03] MEDS: Acetaminophen 325 MG Tab PO PRN (20:32)
[2024-05-03] MEDS: Gabapentin 400 MG Cap PO SCH (20:33)
[2024-05-03] MEDS: Insulin Glargine,Human Rec. Analog 100 Units/ML 3 ML Pen SUBCUT SCH (20:37)
[2024-05-03] MEDS: rOPINIRole 1 MG Tab PO SCH (20:37)
[2024-05-03] MEDS: Prazosin 1 MG Cap PO SCH (21:04)
[2024-05-03] MEDS: Melatonin 3 MG Tab PO PRN (21:24)
[2024-05-04] MEDS: Pantoprazole 40 MG Tab.CR PO SCH (06:09)
[2024-05-04 07:21] LABS: BASOPHILS PERCENT AUTO 0.6 % (0.2-1.5); EOSINOPHILS ABSOLUTE AUTO 0.2 x10-3/uL (0.0-0.8); HEMATOCRIT 39.2 % (34.2-48.2); HEMOGLOBIN 13.2 g/dL (11.4-15.5); LYMPHOCYTES ABSOLUTE AUTO 1.5 x10-3/uL (1.0-4.4); LYMPHOCYTES PERCENT AUTO 25.9 % (18.4-52.1); MEAN CORPUSCULAR HEMOGLOBIN 30.2 pg (23.9-33.9); MEAN CORPUSCULAR HGB CONC 33.6 g/dL (31.9-34.8); MEAN PLATELET VOLUME 9.4 fL (7.1-12.4); MONOCYTES ABSOLUTE AUTO 0.5 x10-3/uL (0.3-1.0); MONOCYTES PERCENT AUTO 8.6 % (4.4-15.7); NEUTROPHILS ABSOLUTE AUTO 3.6 x10-3/uL (1.5-6.3); NEUTROPHILS PERCENT AUTO 61.9 % (30.8-76.2); PLATELET COUNT,PLT 192 x10(3)uL (151-488); RED BLOOD CELL COUNT 4.35 x10(6)uL (3.60-5.20); RED CELL DISTRIBUTION WIDTH 14.5 % (12.3-16.5); WHITE BLOOD CELL COUNT,WBC 5.8 x10-3/uL (3.0-10.3)
[2024-05-04 07:30] LABS: A/G RATIO 0.8; ALANINE AMINOTRANSFERASE,ALT 26 U/L (12-36); ALBUMIN 2.9 g/dL (3.2-4.6); ALKALINE PHOSPHATASE 64 IU/L (56-112); ASPARTATE AMNIOTRANSFERASE,AST 33 IU/L (5-25); BILIRUBIN TOTAL 0.5 mg/dL (0.1-1.3); BLOOD UREA NITROGEN,BUN 9 mg/dL (7-18); CALCIUM 8.2 mg/dL (8.6-10.2); CARBON DIOXIDE,CO2 22 mmol/L (21-32); CHLORIDE,CL 106 mmol/L (100-110); CREATININE 0.9 mg/dL (0.55-1.02); EST CRCL DRUG DOSING (CG) 57.56 mL/min; ESTIMATED GFR 71 mL/min (>60); GLUCOSE RANDOM 194 mg/dL (80-116); POTASSIUM,K 3.3 mmol/L (3.5-5.3); PROTEIN TOTAL,TP 6.4 g/dL (6.0-8.0); SODIUM,NA 137 mmol/L (135-145)
[2024-05-04] MEDS ORDERED: Doxepin 25 MG Cap PO ONE (09:00)
[2024-05-04] MEDS: Formoterol/Mometasone 200-5 MCG 8.8 GM Inhaler IH SCH (09:22)
[2024-05-04] MEDS: Potassium Chloride 20 MEQ Tab.ER PO SCH (09:23)
[2024-05-04] MEDS: Tiotropium Bromide 4 GM Inhalation Spray (2.5mcg/1 dose; 10 doses) INH SCH (09:25)
[2024-05-04] MEDS: buPROPion 150 MG Tab.ER PO SCH (09:25)
[2024-05-04] MEDS: Sodium Chloride 0.9% 10 ML Syringe FLUSH PRN (14:49)
[2024-05-04] MEDS: oxyCODONE 5 MG Tab PO PRN (16:59)
[2024-05-04] MEDS: rOPINIRole 0.5 MG Tab PO SCH (20:16)
[2024-05-04] MEDS: Doxepin 25 MG Cap PO SCH (20:16)
[2024-05-04 21:12] LABS: AMMONIA, PLASMA 12
[2024-05-05 06:42] LABS: BASOPHILS PERCENT AUTO 0.7 % (0.2-1.5); EOSINOPHILS ABSOLUTE AUTO 0.2 x10-3/uL (0.0-0.8); EOSINOPHILS PERCENT AUTO 4.2 % (0.6-8.1); HEMOGLOBIN 12.7 g/dL (11.4-15.5); LYMPHOCYTES ABSOLUTE AUTO 1.8 x10-3/uL (1.0-4.4); LYMPHOCYTES PERCENT AUTO 33.3 % (18.4-52.1); MEAN CORPUSCULAR HEMOGLOBIN 30.2 pg (23.9-33.9); MEAN CORPUSCULAR HGB CONC 33.5 g/dL (31.9-34.8); MEAN CORPUSCULAR VOLUME 90.1 fL (76.7-100.5); MEAN PLATELET VOLUME 9.6 fL (7.1-12.4); MONOCYTES ABSOLUTE AUTO 0.4 x10-3/uL (0.3-1.0); MONOCYTES PERCENT AUTO 8.1 % (4.4-15.7); NEUTROPHILS ABSOLUTE AUTO 2.9 x10-3/uL (1.5-6.3); NEUTROPHILS PERCENT AUTO 53.7 % (30.8-76.2); PLATELET COUNT,PLT 166 x10(3)uL (151-488); RED BLOOD CELL COUNT 4.22 x10(6)uL (3.60-5.20); RED CELL DISTRIBUTION WIDTH 14.7 % (12.3-16.5); WHITE BLOOD CELL COUNT,WBC 5.5 x10-3/uL (3.0-10.3)
[2024-05-05 06:50] LABS: A/G RATIO 0.9; ALANINE AMINOTRANSFERASE,ALT 23 U/L (12-36); ALBUMIN 2.9 g/dL (3.2-4.6); ALKALINE PHOSPHATASE 60 IU/L (56-112); ASPARTATE AMNIOTRANSFERASE,AST 22 IU/L (5-25); BILIRUBIN TOTAL 0.4 mg/dL (0.1-1.3); BLOOD UREA NITROGEN,BUN 8 mg/dL (7-18); CALCIUM 8.2 mg/dL (8.6-10.2); CARBON DIOXIDE,CO2 22 mmol/L (21-32); CHLORIDE,CL 104 mmol/L (100-110); CREATININE 0.8 mg/dL (0.55-1.02); EST CRCL DRUG DOSING (CG) 64.76 mL/min; ESTIMATED GFR 81 mL/min (>60); GLUCOSE RANDOM 168 mg/dL (80-116); POTASSIUM,K 3.5 mmol/L (3.5-5.3); PROTEIN TOTAL,TP 6.1 g/dL (6.0-8.0); SODIUM,NA 137 mmol/L (135-145)
[2024-05-05 09:15] VITALS: PULSE 78
[2024-05-05 11:28] VITALS: BP 143/73
== END 2024-05-05 11:25 | disposition home health service (06) | DRG 863 ==
LOC: FB.ED 10:39 → FB.MS 12:50
PROVIDERS: ADMIT Family Medicine; ATTEND Family Medicine
DX: T81.49XA Infection following a procedure, other surgical site, initial encounter (principal); L03.311 Cellulitis of abdominal wall; L02.211 Cutaneous abscess of abdominal wall; G93.40 Encephalopathy, unspecified; N17.9 Acute kidney failure, unspecified; E87.1 Hypo-osmolality and hyponatremia; G89.29 Other chronic pain; M25.551 Pain in right hip; H54.7 Unspecified visual loss; E78.00 Pure hypercholesterolemia, unspecified; Z68.38 Body mass index [BMI] 38.0-38.9, adult; I10 Essential (primary) hypertension; J44.9 Chronic obstructive pulmonary disease, unspecified; Z79.891 Long term (current) use of opiate analgesic; K21.9 Gastro-esophageal reflux disease without esophagitis; F41.9 Anxiety disorder, unspecified; F32.A Depression, unspecified; Z88.8 Allergy status to other drugs, medicaments and biological substances; E66.9 Obesity, unspecified; Z96.659 Presence of unspecified artificial knee joint; Z96.619 Presence of unspecified artificial shoulder joint; E86.0 Dehydration; E11.65 Type 2 diabetes mellitus with hyperglycemia; Z96.89 Presence of other specified functional implants; E83.42 Hypomagnesemia; B18.2 Chronic viral hepatitis C; K74.60 Unspecified cirrhosis of liver; M54.16 Radiculopathy, lumbar region; Z79.51 Long term (current) use of inhaled steroids; Z88.0 Allergy status to penicillin; Z88.1 Allergy status to other antibiotic agents; Z79.4 Long term (current) use of insulin; Z79.52 Long term (current) use of systemic steroids; Z79.84 Long term (current) use of oral hypoglycemic drugs; Z79.899 Other long term (current) drug therapy; Z87.81 Personal history of (healed) traumatic fracture; Z68.39 Body mass index [BMI] 39.0-39.9, adult; Z90.49 Acquired absence of other specified parts of digestive tract; Z90.710 Acquired absence of both cervix and uterus; Z98.1 Arthrodesis status; Z87.891 Personal history of nicotine dependence
CPT/HCPCS: 36415; 74177; 80053; 80202; 81001; 82140; 82947; 83605; 83735; 84484; 85025; 85610; 85730; 86140; 87040; 93005; 93010; 94150; 99223; 99232; 99238; 99285; A9270-GY; J0696; J1650; J1815; J1815-GY; J3372; J3475; J3490; J7030; Q9967

== ENCOUNTER 2025-05-30 13:51 | Emergency (ER) | payer MEDICARE ==
[2025-05-30 15:26] LABS: BASOPHILS ABSOLUTE AUTO 0.0 x10-3/uL (0.0-0.1); BASOPHILS PERCENT AUTO 0.7 % (0.2-1.5); EOSINOPHILS ABSOLUTE AUTO 0.2 x10-3/uL (0.0-0.8); EOSINOPHILS PERCENT AUTO 3.2 % (0.6-8.1); LYMPHOCYTES ABSOLUTE AUTO 1.6 x10-3/uL (1.0-4.4); LYMPHOCYTES PERCENT AUTO 21.6 % (18.4-52.1); MEAN PLATELET VOLUME 9.3 fL (7.1-12.4); MONOCYTES ABSOLUTE AUTO 0.7 x10-3/uL (0.3-1.0); MONOCYTES PERCENT AUTO 9.2 % (4.4-15.7); NEUTROPHILS ABSOLUTE AUTO 4.8 x10-3/uL (1.5-6.3); NEUTROPHILS PERCENT AUTO 65.3 % (30.8-76.2); PLATELET COUNT,PLT 207 x10(3)uL (151-488); RED BLOOD CELL COUNT 4.33 x10(6)uL (3.60-5.20); RED CELL DISTRIBUTION WIDTH 14.4 % (12.3-16.5); WHITE BLOOD CELL COUNT,WBC 7.3 x10-3/uL (3.0-10.3)
[2025-05-30 15:33] LABS: BLOOD UREA NITROGEN,BUN 12 mg/dL (7-18); CARBON DIOXIDE,CO2 24 mmol/L (21-32); CHLORIDE,CL 107 mmol/L (100-110); CREATININE 1.0 mg/dL (0.55-1.02); EST CRCL DRUG DOSING (CG) 51.10 mL/min; ESTIMATED GFR 62 mL/min (>60); GLUCOSE RANDOM 210 mg/dL (80-116); POTASSIUM,K 3.8 mmol/L (3.5-5.3); SODIUM,NA 143 mmol/L (135-145)
[2025-05-30 15:38] LABS: A/G RATIO 0.9; ALANINE AMINOTRANSFERASE,ALT 26 U/L (12-36); ASPARTATE AMNIOTRANSFERASE,AST 22 IU/L (5-25); BILIRUBIN TOTAL 0.4 mg/dL (0.1-1.3); PROTEIN TOTAL,TP 7.3 g/dL (6.0-8.0)
[2025-05-30] MEDS: Iopamidol 755 Mg/ML 100 ML Bottle IV SCH (16:25)
[2025-05-30 19:04] VITALS: BP 167/77; PULSE 61
[2025-05-30] MEDS: Amoxicillin/Clavulanate K 875-125 MG Tab PO ONE (19:38)
== END 2025-05-30 20:10 | disposition home or self-care (01) ==
LOC: FB.ED 13:51
DX: K11.20 Sialoadenitis, unspecified (principal); I10 Essential (primary) hypertension; K21.9 Gastro-esophageal reflux disease without esophagitis; E78.00 Pure hypercholesterolemia, unspecified; E66.9 Obesity, unspecified; E11.9 Type 2 diabetes mellitus without complications; Z88.0 Allergy status to penicillin; Z88.1 Allergy status to other antibiotic agents; Z79.4 Long term (current) use of insulin; Z79.899 Other long term (current) drug therapy; Z68.41 Body mass index [BMI] 40.0-44.9, adult
CPT/HCPCS: 36415; 70491; 71260; 80053; 85025; 87651; 99284; A9270-GY; Q9967